=== PATIENT | female | born 1945 | race Caucasian/White ===

== ENCOUNTER 2018-06-11 10:41 | Inpatient (IN) | payer OTHER ==
[~2018-06-11] VITALS: Ht 170.2 cm; Wt 117.3 kg
[~2018-06-11 10:41] MED LIST: ACET325 PO; ALBIPROI INH; ALBU90OI6 INH; ASPI81CH PO; ASPI81EC PO; Albuterol2.5 MG/0.5 INH; Augmentin 875-1 EACH PO; BUDE6HFA INH; DOCU100 PO; GUAI600T33 PO; LEVO750 PO; LOSA25 PO; MONT10T PO; OXYACE5T PO; PRED10 PO; SPIR25 PO; TIOT18 INH; TORSE20 PO; VERA240ER PO; VERA240ERA PO; VERA80 PO; WARF4 PO
[2018-06-11 11:27] LABS: BASOPHILS ABSOLUTE AUTO 0.02 K/mm3 (0.00-0.23); BASOPHILS PERCENT AUTO 0 % (0-2); EOSINOPHILS ABSOLUTE AUTO 0.09 K/mm3 (0.00-0.68); EOSINOPHILS PERCENT AUTO 1 % (0-6); Hematocrit 40.2 % (33.0-51.0); IMMATURE GRAN ABSOLUTE AUTO 0.06 K/mm3 (0.00-0.10); IMMATURE GRAN PERCENT AUTO 1 % (0-1); LYMPHOCYTES ABSOLUTE AUTO 0.53 K/mm3 (0.84-5.20); LYMPHOCYTES PERCENT AUTO 4 % (21-46); MONOCYTES ABSOLUTE AUTO 0.69 K/mm3 (0.16-1.47); MONOCYTES PERCENT AUTO 5 % (4-13); Mean Corpuscular HGB 27.3 pg (26.0-34.0); Mean Corpuscular HGB Conc 32.3 g/dL (31.5-36.5); Mean Corpuscular Volume 84 fL (80-100); Mean Platelet Volume 8.9 fL (9.1-12.4); NEUTROPHILS ABSOLUTE AUTO 11.83 K/mm3 (1.96-9.15); NEUTROPHILS PERCENT AUTO 89 % (41-73); Platelet Count 432 K/mm3 (150-400); RDW Coefficient Variation 14.6 % (11.7-14.2); RDW Standard Deviation 45.2 fL (35.1-46.3); Red Blood Cell Count 4.77 M/mm3 (3.80-5.20); White Blood Cell Count 13.22 K/mm3 (4.00-11.30)
[2018-06-11 11:58] LABS: Alanine Aminotransfer (ALT/SGP 31 U/L (12-78); Albumin, Blood 2.6 g/dL (3.4-5.0); Albumin/Globulin Ratio 0.6 (0.8-1.8); Alk Phos 115 U/L (50-136); Anion Gap 9 mmol/L (6-16); Aspartate Aminotrans (AST/SGOT 17 U/L (12-37); Bilirubin, Total 0.6 mg/dL (0.1-1.0); Blood Urea Nitrogen 7 mg/dL (8-24); Bun/Creatinine Ratio 13.6 (12.0-20.0); CO2, Blood 26 mmol/L (21-32); Chloride, Blood 90 mmol/L (98-108); Creatinine, Blood 0.52 mg/dL (0.40-1.00); Globulin, Blood 4.6 g/dL (2.2-4.0); Glomerular Filtration Rate >60 (60-); Glucose, Blood 121 mg/dL (70-99); Potassium, Blood 4.3 mmol/L (3.5-5.5); Sodium, Blood 125 mmol/L (136-145); Total Protein, Blood 7.2 g/dL (6.4-8.2); Troponin I <0.015 ng/mL (0.000-0.040)
[2018-06-11] MEDS ORDERED: BRIMONIDINE TART5 M1 (12:03)
[2018-06-11] MEDS ORDERED: LATANOPROST2.5 ML OP (12:04)
[2018-06-11] MEDS ORDERED: DORZOPSO (12:05)
[2018-06-11] MEDS ORDERED: PRESERVISION A1 EACH PO (12:05)
[2018-06-11 12:49] LABS: Influenza A Negative (NEGATIVE); Influenza B Negative (NEGATIVE)
--- NOTE | 2018-06-11 18:46 | NUR ---
SHIFT SUMMARY ADMIT DONE. NO ACUTE CONCERNS AT THIS TIME. SHE HAS DIM LUNG SOUNDS IN THE LOWER LOBES. PATIENT ON 2L O2 VIA NC. PATIENT ALERT AND ORIENTED INDEPENDENT.
[2018-06-12 04:51] LABS: BASOPHILS ABSOLUTE AUTO 0.01 K/mm3 (0.00-0.23); BASOPHILS PERCENT AUTO 0 % (0-2); EOSINOPHILS PERCENT AUTO 0 % (0-6); Hematocrit 40.3 % (33.0-51.0); Hemoglobin 12.7 g/dL (11.5-16.0); IMMATURE GRAN ABSOLUTE AUTO 0.08 K/mm3 (0.00-0.10); IMMATURE GRAN PERCENT AUTO 1 % (0-1); LYMPHOCYTES ABSOLUTE AUTO 0.38 K/mm3 (0.84-5.20); LYMPHOCYTES PERCENT AUTO 3 % (21-46); MONOCYTES ABSOLUTE AUTO 0.12 K/mm3 (0.16-1.47); MONOCYTES PERCENT AUTO 1 % (4-13); Mean Corpuscular HGB 27.1 pg (26.0-34.0); Mean Corpuscular HGB Conc 31.5 g/dL (31.5-36.5); Mean Corpuscular Volume 86 fL (80-100); Mean Platelet Volume 8.8 fL (9.1-12.4); NEUTROPHILS ABSOLUTE AUTO 11.21 K/mm3 (1.96-9.15); NEUTROPHILS PERCENT AUTO 95 % (41-73); Platelet Count 439 K/mm3 (150-400); RDW Coefficient Variation 14.6 % (11.7-14.2); RDW Standard Deviation 46.9 fL (35.1-46.3); Red Blood Cell Count 4.68 M/mm3 (3.80-5.20)
[2018-06-12 05:15] LABS: Anion Gap 8 mmol/L (6-16); Blood Urea Nitrogen 7 mg/dL (8-24); Bun/Creatinine Ratio 13.1 (12.0-20.0); CO2, Blood 26 mmol/L (21-32); Calcium, Blood 8.9 mg/dL (8.5-10.1); Chloride, Blood 93 mmol/L (98-108); Creatinine, Blood 0.53 mg/dL (0.40-1.00); Glomerular Filtration Rate >60 (60-); Glucose, Blood 175 mg/dL (70-99); Potassium, Blood 4.4 mmol/L (3.5-5.5); Sodium, Blood 127 mmol/L (136-145)
--- NOTE | 2018-06-12 18:38 | NUR ---
SHIFT SUMMARY PATIENT ALERT AND ORIENTED. VERY PLEASANT. INDEPENDENT IN THE ROOM. RUNNING ANOTHER BAG OF NORMAL SALINE TO GET THE PATIENT'S SODIUM LEVEL BACK INTO THE SAFE RANGE.
--- NOTE | 2018-06-13 03:25 | NUR ---
SHIFT SUMMARY PATIENT HAD NO ACUTE CHANGES OBSERVED THIS SHIFT. AXO X3 AND INDEPENDENT IN THE ROOM. PATIENT STAYING IN CHAIR WITH CPAP AND 3L O2. PIV REMAINS INTACT. NS FINISHED INFUSING BAG 2/2. VSS/AFEBRILE. DENIES PAIN AND N/V. SOLU MEDROL GIVEN PER EMAR. RT IN FOR BREATHING TX. COOPERATIVE WITH CARE. CALL LIGHT IN REACH. BED IN LOWEST POSITION. WILL CONTINUE TO MONITOR UNTIL DAY SHIFT NURSE ASSUMES CARE.
[2018-06-13 07:45] LABS: Anion Gap 6 mmol/L (6-16); Blood Urea Nitrogen 16 mg/dL (8-24); Bun/Creatinine Ratio 29.5 (12.0-20.0); CO2, Blood 28 mmol/L (21-32); Calcium, Blood 8.4 mg/dL (8.5-10.1); Chloride, Blood 96 mmol/L (98-108); Creatinine, Blood 0.54 mg/dL (0.40-1.00); Glomerular Filtration Rate >60 (60-); Glucose, Blood 171 mg/dL (70-99); Potassium, Blood 4.4 mmol/L (3.5-5.5); Sodium, Blood 130 mmol/L (136-145)
--- NOTE | 2018-06-13 18:10 | NUR ---
PATIENT IS A/OX4 AND UP INDEPENDENTLY IN ROOM. VSS THIS SHIFT. TOLERATING REGULAR DIET. PATIENT REPORTS SHE IS FEELING MUCH BETTER THIS AFTERNOON. 3LO2 TO MAINTAIN SATS, LUNGS COARSE IN BASES. ROBITUSSIN SCHEDULED FOR COUGH. SKIN INTACT. NO ACUTE CHANGES THIS SHIFT.
--- NOTE | 2018-06-14 05:16 | NUR ---
SHIFT SUMMARY: NO ACUTE CHANGES TONIGHT. PT IS A&O, INDEPENDENT IN RM. LS COARSE WHEEZE T/O. ON 3L VIA NC, BASELINE RA. CPAP @ NIGHT. SCHEDULED SOLU MEDROL AND ROBITUSSIN ADMINISTERED T/O PER ORDERS. PT REPORTS SHE MAY BE GOING HOME TOMORROW. HOWEVER, PT IS STILL DEPENDENT ON O2. WILL CONT TO MONITOR AND PROVIDE CARE UNTIL PRESUMED BY ONGOING RN.
[2018-06-14] MEDS ORDERED: Augmentin 875-1 EACH PO (12:17)
[2018-06-14] MEDS ORDERED: PRED20 (12:19)
[2018-06-14] MEDS ORDERED: ROBITUSSIN COU237 ML PO (12:21)
--- NOTE | 2018-06-14 13:05 | NUR ---
DISCHARGE PT UP IN CHAIR FOR BF, STATE CONTINUING SHORTNESS OF BREATH HOWEVER FEELING IMPROVED, HOPEFUL TO GO HOME. DR COCHRAN IN TO ASSESS HER, STATE OK FOR D/C HOME AFTER HOME O2 EVAL. RT IN AFTER LUNCH FOR EVAL, PT WILL REQUIRE INCREASE IN HOME O2 ORDERS, CARE MANAGEMENT NOTIFIED. IV D/C INTACT. D/C INSTRUCT REVIEWED W PT/. SCRIPTS FAXED TO [facility]/REQUEST. W/C ESCORT FROM HOSP PROVIDED, THEY HAVE PORTABLE O2 FROM HOME FOR RIDE HOME. PLEASANT & APPRECIATIVE.
== END 2018-06-14 13:05 | disposition home or self-care (01) | DRG 871 ==
LOC: ER 10:41 → MEDS 13:39 → ENPENDDIS 06-14 11:25 → MEDS 06-14 13:05
PROVIDERS: Emergency Medicine; Internal Medicine; ADMIT Hospitalist
DX: A41.9 Sepsis, unspecified organism (principal); J96.01 Acute respiratory failure with hypoxia; J18.9 Pneumonia, unspecified organism; E87.1 Hypo-osmolality and hyponatremia; E66.2 Morbid (severe) obesity with alveolar hypoventilation; J44.1 Chronic obstructive pulmonary disease with (acute) exacerbation; J44.0 Chronic obstructive pulmonary disease with (acute) lower respiratory infection; C83.30 Diffuse large B-cell lymphoma, unspecified site; G47.33 Obstructive sleep apnea (adult) (pediatric); I35.0 Nonrheumatic aortic (valve) stenosis; Z99.81 Dependence on supplemental oxygen; I10 Essential (primary) hypertension; Z87.891 Personal history of nicotine dependence; Z68.39 Body mass index [BMI] 39.0-39.9, adult
CPT/HCPCS: 36415; 71046; 80048; 80053; 83605; 83880; 84484; 85025; 87070; 87077; 87185; 87205; 87804; 93005; 93010; 94640; 94760; 94761; 94762; 96374; 96375; 97161; 99285-25; J0456; J0696; J1650; J2543; J2930; J7030; J7050

== ENCOUNTER → 2021-01-22 | Outpatient (CLI) | payer OTHER ==
[~2021-01-22] MED LIST changes: +BRIMONIDINE TART5 M1; +DORZOPSO; +LATANOPROST2.5 ML OP; +PRED20; +PRESERVISION A1 EACH PO; +ROBITUSSIN COU237 ML PO
== END | disposition home or self-care (01) ==
LOC: LAB SHORT 15:09
DX: L72.11 Pilar cyst (principal)
CPT/HCPCS: 88304

== ENCOUNTER 2021-05-02 10:11 | Inpatient (IN) | payer OTHER, MEDICARE ==
[~2021-05-02] VITALS: Ht 167.6 cm; Wt 111.1 kg
[~2021-05-02 10:11] MED LIST changes: -DORZOPSO; +DORZOPSO BOTHEYES; +PRESERVISION A1 EAC1 PO; -PRESERVISION A1 EACH PO; +SYMBICORT 160-4.6 GM INH
[2021-05-02 10:55] LABS: BASOPHILS ABSOLUTE AUTO 0.03 K/mm3 (0.00-0.23); BASOPHILS PERCENT AUTO 0 % (0-2); EOSINOPHILS ABSOLUTE AUTO 0.07 K/mm3 (0.00-0.68); EOSINOPHILS PERCENT AUTO 0 % (0-6); Hematocrit 41.5 % (33.0-51.0); Hemoglobin 13.4 g/dL (11.5-16.0); IMMATURE GRAN PERCENT AUTO 1 % (0-1); LYMPHOCYTES ABSOLUTE AUTO 0.54 K/mm3 (0.84-5.20); LYMPHOCYTES PERCENT AUTO 3 % (21-46); MONOCYTES ABSOLUTE AUTO 0.96 K/mm3 (0.16-1.47); MONOCYTES PERCENT AUTO 6 % (4-13); Mean Corpuscular HGB 27.2 pg (26.0-34.0); Mean Corpuscular HGB Conc 32.3 g/dL (31.5-36.5); Mean Corpuscular Volume 84 fL (80-100); NEUTROPHILS ABSOLUTE AUTO 14.41 K/mm3 (1.96-9.15); NEUTROPHILS PERCENT AUTO 89 % (41-73); Platelet Count 521 K/mm3 (150-400); RDW Coefficient Variation 14.4 % (11.7-14.2); RDW Standard Deviation 44.9 fL (35.1-46.3); Red Blood Cell Count 4.92 M/mm3 (3.80-5.20); White Blood Cell Count 16.11 K/mm3 (4.00-11.30)
[2021-05-02 11:10] LABS: Alanine Aminotransfer (ALT/SGP 51 U/L (12-78); Albumin, Blood 2.7 g/dL (3.4-5.0); Albumin/Globulin Ratio 0.6 (0.8-1.8); Alk Phos 173 U/L (50-136); Anion Gap 6 mmol/L (6-16); Aspartate Aminotrans (AST/SGOT 28 U/L (12-37); Bilirubin, Total 0.8 mg/dL (0.1-1.0); Blood Urea Nitrogen 26 mg/dL (8-24); Bun/Creatinine Ratio 29.2 (12.0-20.0); CO2, Blood 31 mmol/L (21-32); Calcium, Blood 8.9 mg/dL (8.5-10.1); Chloride, Blood 82 mmol/L (98-108); Creatinine, Blood 0.89 mg/dL (0.40-1.00); Globulin, Blood 4.7 g/dL (2.2-4.0); Glomerular Filtration Rate >60 (60-); Glucose, Blood 139 mg/dL (70-99); Potassium, Blood 4.8 mmol/L (3.5-5.5); Sodium, Blood 119 mmol/L (136-145); Total Protein, Blood 7.4 g/dL (6.4-8.2)
--- NOTE | 2021-05-02 17:45 | NUR ---
TRANSFER UPDATE REPORT FROM ED NURSE AT 1524. PT ARRIVED TO PCU AT 1550 VIA GURNEY AND ON 6L NC UPON ARRIVAL. PT TRANSFERED SELF FROM [facility] TO [facility], REPORTED SOB WITH EXERTION, SATS REMAINED IN 90'S. VSS WITH O2 SATS >96% ON 6L NC, TITRATED TO 4L. SATS REMAINED >96%, O2 TIRATED TO 2L NC. NO REPORT OF CHEST PAIN/PRESSURE SINCE ARRIVAL TO UNIT. NS RUNNING PER EMAR. PT A/OX4 AND COOPERATIVE OF CARE.
--- NOTE | 2021-05-02 19:43 | NUR ---
ASSUMED CARE OF PATIENT AT APPROX 1900. PT UP IN CHAIR. ALERT, ORIENTED x4; CALM AND COOPERATIVE WITH CARE. PT REPORTS BEING LEGALLY BLIND, PUPILS ARE UNEQUAL, THE RIGHT DOES NOT REACT TO LIGHT AND LEFT IS SLUGGISH. PT REPORTS SOB WHILE SITTING IN CHAIR, SPO2 >90% ON 2L O2 VIA NC; BREATHING IS EVEN AND UNLABORED. PT MEJIA PAIN, CHEST PAIN/PRESSURE, NAUSEA, DIZZINESS AND NUMB/TINGLING. NS INFUSING PER ORDERS. VSS. NO OTHER ACUTE CHANGES. WILL CONTINUE TO MONITOR UNITL REPORT GIVEN TO ONCOMING RN.
--- NOTE | 2021-05-02 22:25 | NUR ---
pt requesting to sleep up in chair, cpap in place. will continue to monitor
[2021-05-03 04:09] LABS: BASOPHILS ABSOLUTE AUTO 0.01 K/mm3 (0.00-0.23); BASOPHILS PERCENT AUTO 0 % (0-2); EOSINOPHILS ABSOLUTE AUTO 0.07 K/mm3 (0.00-0.68); EOSINOPHILS PERCENT AUTO 1 % (0-6); Hematocrit 39.7 % (33.0-51.0); Hemoglobin 12.7 g/dL (11.5-16.0); IMMATURE GRAN ABSOLUTE AUTO 0.06 K/mm3 (0.00-0.10); IMMATURE GRAN PERCENT AUTO 0 % (0-1); LYMPHOCYTES ABSOLUTE AUTO 0.49 K/mm3 (0.84-5.20); LYMPHOCYTES PERCENT AUTO 4 % (21-46); MONOCYTES ABSOLUTE AUTO 1.01 K/mm3 (0.16-1.47); MONOCYTES PERCENT AUTO 8 % (4-13); Mean Corpuscular Volume 85 fL (80-100); Mean Platelet Volume 8.5 fL (9.1-12.4); NEUTROPHILS ABSOLUTE AUTO 11.73 K/mm3 (1.96-9.15); NEUTROPHILS PERCENT AUTO 88 % (41-73); Platelet Count 423 K/mm3 (150-400); RDW Coefficient Variation 14.4 % (11.7-14.2); RDW Standard Deviation 44.2 fL (35.1-46.3); White Blood Cell Count 13.37 K/mm3 (4.00-11.30)
[2021-05-03 04:33] LABS: Anion Gap 10 mmol/L (6-16); Blood Urea Nitrogen 27 mg/dL (8-24); Bun/Creatinine Ratio 32.4 (12.0-20.0); CO2, Blood 29 mmol/L (21-32); Calcium, Blood 8.6 mg/dL (8.5-10.1); Chloride, Blood 82 mmol/L (98-108); Creatinine, Blood 0.83 mg/dL (0.40-1.00); Glomerular Filtration Rate >60 (60-); Glucose, Blood 105 mg/dL (70-99); Magnesium, Blood 1.8 mg/dL (1.6-2.4); Potassium, Blood 4.5 mmol/L (3.5-5.5); Sodium, Blood 121 mmol/L (136-145)
--- NOTE | 2021-05-03 06:02 | NUR ---
SHIFT SUMMARY PT APPEARS TO BE SLEEPING INTERMITTENTLY T/O SHIFT. PT STATES SHE DOES NOTE FEEL WELL, WHEN ASKED ABOUT RESPIRATORY, PT STATES ITS THIS SAME. SPO2 >90% WHILE PT AT REST ON 2L O2 VIA NC OR CPAP AT 5-6 WITH 2 L BLEED IN; PT DESATURATES WITH ACTIVITY; SOB AT REST. PT DENIES PAIN, CHEST PAIN, NAUSEA, DIZZINESS AND NUMB/TINGLING. OTHER VSS. NO S/SX OF DISTRESS NOTED. NO OTHER ACUTE CHANGES NOTED DURING SHIFT. WILL CONTINUE TO MONITOR UNTIL REPORT GIVEN TO ONCOMING RN.
[2021-05-03] MEDS ORDERED: Bisoprolol Fumar5 MG PO (06:19)
[2021-05-03 11:04] LABS: International Normalized Ratio 1.15
[2021-05-03 16:36] LABS: Lactate Dehydrogenase, Body Fl 186 U/L
[2021-05-03 16:46] LABS: Albumin, Body Fluid 2.2 g/dL; Glucose, Body Fluid 106 mg/dL; Protein, Body Fluid 4.1 g/dL
--- NOTE | 2021-05-03 16:54 | NUR ---
SHIFT SUMMARY PT A/O X4 AND COOPERATIVE OF CARE. VSS THROUGHOUT SHIFT WITH O2 SATS >95% ON 2L NC. PT UP TO COMMODE MULTIPLE TIMES DURING SHIFT, SMALL AMOUNTS OF OUTPUT EACH TIME, O2 SATS WOULD DROP TO 80'S QUICKLEY WHILE PT WAS TRANSFERING TO [facility]. THORACENTESIS DONE IN ROOM BY , 550ML DRAINED, PT REPORTS "FEELING MUCH BETTER ALREADY." OXYGEN TITRATED TO 1L NC, SATS >92%. ABOUT 1700, PT REPORTED A BRIEF FEELING OF LIGHTHEADEDNESS, HR IN THE 130'S. NOTIFIED.
[2021-05-03 16:59] LABS: Automated BF RBC Count 0.074 M/mm3 (0-0); Automated BF WBC Count 8.272 K/mm3 (0-999); Body Fluid WBC Count 8272 /mm3 (0-999); RBC Count, Body Fluid 74000 /mm3 (0-0)
[2021-05-03 17:18] LABS: Appearance, Body Fluid Bloody (Clear); Color, Body Fluid Red (None-Yellow); Total Cell Count, Body Fluid 100
[2021-05-03 18:22] LABS: BASOPHILS ABSOLUTE AUTO 0.02 K/mm3 (0.00-0.23); BASOPHILS PERCENT AUTO 0 % (0-2); EOSINOPHILS ABSOLUTE AUTO 0.15 K/mm3 (0.00-0.68); EOSINOPHILS PERCENT AUTO 1 % (0-6); Hematocrit 40.3 % (33.0-51.0); Hemoglobin 13.2 g/dL (11.5-16.0); IMMATURE GRAN ABSOLUTE AUTO 0.08 K/mm3 (0.00-0.10); IMMATURE GRAN PERCENT AUTO 1 % (0-1); LYMPHOCYTES ABSOLUTE AUTO 0.68 K/mm3 (0.84-5.20); LYMPHOCYTES PERCENT AUTO 5 % (21-46); MONOCYTES ABSOLUTE AUTO 0.98 K/mm3 (0.16-1.47); MONOCYTES PERCENT AUTO 7 % (4-13); Mean Corpuscular HGB 27.4 pg (26.0-34.0); Mean Corpuscular HGB Conc 32.8 g/dL (31.5-36.5); Mean Corpuscular Volume 84 fL (80-100); Mean Platelet Volume 8.9 fL (9.1-12.4); NEUTROPHILS ABSOLUTE AUTO 12.12 K/mm3 (1.96-9.15); NEUTROPHILS PERCENT AUTO 86 % (41-73); Platelet Count 535 K/mm3 (150-400); RDW Coefficient Variation 14.4 % (11.7-14.2); RDW Standard Deviation 43.8 fL (35.1-46.3); Red Blood Cell Count 4.82 M/mm3 (3.80-5.20); White Blood Cell Count 14.03 K/mm3 (4.00-11.30)
--- NOTE | 2021-05-03 20:59 | NUR ---
UPDATE PHYSICIAN NOTIFIED PHARMACY IS OUT OF IV METOPROLOL AND INFORMED PHYSICIAN OF PT'S BP AND THAT SYSTOLIC BP UNDER 100. INSTRUCTED TO HOLD METOPROLOL AT THIS TIME. HOSPITALIST CALLED AND INFORMED THAT PT'S BP LOW AND PT BECOMING SYMPTOMATIC AND DIAPHORETIC. ORDERS FOR 250 ML BOLUS ONE TIME. WILL CONT TO MONITOR.
--- NOTE | 2021-05-03 21:38 | NUR ---
UPDATE PHYSICIAN NOTIFIED OF PT'S LOW BP. ORDERS FOR ANOTHER 250 ML BOLUS. PHYSICIAN NOTIFIED OF DAY SHIFT HOSPITALISTS PLAN TO DO CHEST X RAY AND CBC IF PT BECOMES HEMODYNAMICALLY UNSTABLE. ORDERS PUT IN, SEE EHR.
[2021-05-03 22:13] LABS: BASOPHILS ABSOLUTE AUTO 0.03 K/mm3 (0.00-0.23); BASOPHILS PERCENT AUTO 0 % (0-2); EOSINOPHILS PERCENT AUTO 1 % (0-6); Hematocrit 39.8 % (33.0-51.0); Hemoglobin 13.1 g/dL (11.5-16.0); IMMATURE GRAN ABSOLUTE AUTO 0.05 K/mm3 (0.00-0.10); IMMATURE GRAN PERCENT AUTO 0 % (0-1); LYMPHOCYTES ABSOLUTE AUTO 0.64 K/mm3 (0.84-5.20); LYMPHOCYTES PERCENT AUTO 4 % (21-46); MONOCYTES ABSOLUTE AUTO 0.97 K/mm3 (0.16-1.47); MONOCYTES PERCENT AUTO 6 % (4-13); Mean Corpuscular HGB 27.6 pg (26.0-34.0); Mean Corpuscular HGB Conc 32.9 g/dL (31.5-36.5); Mean Corpuscular Volume 84 fL (80-100); Mean Platelet Volume 9.1 fL (9.1-12.4); NEUTROPHILS ABSOLUTE AUTO 13.61 K/mm3 (1.96-9.15); NEUTROPHILS PERCENT AUTO 88 % (41-73); Platelet Count 524 K/mm3 (150-400); RDW Coefficient Variation 14.3 % (11.7-14.2); RDW Standard Deviation 44.1 fL (35.1-46.3); Red Blood Cell Count 4.74 M/mm3 (3.80-5.20)
--- NOTE | 2021-05-03 22:28 | NUR ---
UPDATE PHYSICIAN NOTIFIED OF CHEST X RAY. PHYSICIAN AT BEDSIDE WITH PT. ORDERS FOR MIDODRINE 10 MG AND COVID SWAB. PLAN FOR LASIX IF MIDODRINE INCREASES BP.
--- NOTE | 2021-05-03 22:43 | NUR ---
UPDATE/FLUIDS STOPPED FLUIDS STOPPED PER PHYSICIAN ORDER AT THIS TIME. COVID SWAB DC'D D/T DUPLICATE ORDER. COVID SWAB DONE IN ED, NEGATIVE.
--- NOTE | 2021-05-03 23:57 | NUR ---
UPDATE PHYSICIAN UPDATED ON PT'S STATUS. PT ASYMPTOMATIC WITH LOW BP. MAP ABOVE 65. IF PT BEGINS TO HAVE RESPIRATORY DISTRESS INSTRUCTED TO INFORM PHYSICIAN.
--- NOTE | 2021-05-04 05:52 | NUR ---
SHIFT SUMMARY PT ALERT AND ORIENTED X 4. SEE NOTES REGARDING PT'S BP AND HR. PT'S HR CURRENTLY WNL SINUS RHYTHM. BP WNL, MAP ABOVE 65. PT NO LONGER DIAPHORETIC. AND REPORTS TO "FEEL MUCH BETTER." NS FLUIDS STOPPED PER HOSPITALIST ORDER D/T FLUID OVERLOAD SEEN IN CHEST X RAY. PT ABLE TO TURN SELF IN BED NEEDED. SITE FROM [facility]. NO HEMATOMA FORMATION. BANDAID IN PLACE. PT SLEEPING T/O SHIFT. SBA TO COMMODE NEEDED. OXYGEN SATURATION MAINTAINED ABOVE 92%. PT WORE HOME CPAP WITH BLEED IN RANGING FROM 3-6 L. PT SLEEPING WITH MOUTH OPEN CAUSING PT TO DESAT. PHYSICIAN AWARE. WILL CONT TO MONITOR UNTIL REPORT GIVEN TO DAYSHIFT RN.
[2021-05-04 07:05] LABS: Anion Gap 6 mmol/L (6-16); Blood Urea Nitrogen 24 mg/dL (8-24); Bun/Creatinine Ratio 36.9 (12.0-20.0); CO2, Blood 31 mmol/L (21-32); Calcium, Blood 8.5 mg/dL (8.5-10.1); Chloride, Blood 87 mmol/L (98-108); Creatinine, Blood 0.65 mg/dL (0.40-1.00); Glomerular Filtration Rate >60 (60-); Glucose, Blood 108 mg/dL (70-99); Potassium, Blood 3.9 mmol/L (3.5-5.5); Sodium, Blood 124 mmol/L (136-145)
--- NOTE | 2021-05-04 10:57 | NUR ---
thorocentesis ordered today, but due to receiving lovenox this AM the radiologist would like to hold off on thorocentesis today and do it tomorrow. Please hold lovenox until after thoro, will contact pharmacy and pass along in report.
--- NOTE | 2021-05-04 18:46 | NUR ---
Shift note: Pt is A&O, pleasant with cares. Pt did get some sleep today, stated she hadn't slept in days. VSS on 3-5L CPAP and then 4L nasal canula when she is eating. BP have been on the soft side (SBP 90-110s), but I was able to give both doses of lasix as well as the metoprolol. Pt was sinus tach in AM, but remained 70-80s after metoprolol. Pt has Left BBB. Thoracentesis was ordered today, but pt had lovenox injection this AM, radiology will do in AM and hold dose of lovenox tomorrow until after thoracentesis. fluids d/c today. Heart failure education packed was given to pt and for to read to pt. Basic information was also discussed with pt and .
--- NOTE | 2021-05-05 05:43 | NUR ---
SHIFT SUMMARY PT ALERT AND ORIENTED X 4. HR STABLE. BP STABLE. MAP ABOVE 65. PT ABLE TO TURN SELF IN BED NEEDED. PT SBA TO COMMODE. NO CP OR PRESSURE REPORTED. OXYGEN SATURATION MAINTAINED ABOVE 92% ON CPAP. SEE EHR FOR SETTINGS. PT SLEPT T/O SHIFT. WILL CONT TO MONITOR UNTIL REPORT GIVEN TO DAYSHIFT RN.
[2021-05-05 05:49] LABS: Thyroid Stimulating Hormone 0.473 uIU/mL (0.360-4.800)
--- NOTE | 2021-05-05 09:34 | NUR ---
LVM for Dr. Jose to update her regarding pt. They did not do the thoracentesis due to risk vs. benifit after ultrasounding the pt. Pt would also like throat lozenges and BM meds.
--- NOTE | 2021-05-05 14:45 | NUR ---
Pt reported that she uses [facility] for oxygen needs at home. She currently does not use oxygen during the day and uses CPAP at night. Previously she has needed home oxygen and has been set up with [facility] for oxygen needs.
--- NOTE | 2021-05-05 14:51 | NUR ---
Per Career Development Coordinator Screening completed today by Evelyne Pineda, patient's PLOF is independent, lives with family. Her Spouse, Agapito Olivo [phone] is primary contact. DME that the patient already has in her home: FWW, bedside commode, shower bench, CPAP, O2 concentrator, patient is on 2 lpm at home. O2 services is through [facility] [place]. Patient has previously received HH services from [facility]. I called Summer with [facility] to relay the possible referral to her. Patient's Agapito will provide transportation upon discharge.
[2021-05-05 15:56] LABS: Anion Gap 10 mmol/L (6-16); Blood Urea Nitrogen 24 mg/dL (8-24); Bun/Creatinine Ratio 32.9 (12.0-20.0); CO2, Blood 30 mmol/L (21-32); Calcium, Blood 8.4 mg/dL (8.5-10.1); Chloride, Blood 87 mmol/L (98-108); Creatinine, Blood 0.73 mg/dL (0.40-1.00); Glomerular Filtration Rate >60 (60-); Glucose, Blood 112 mg/dL (70-99); Potassium, Blood 3.7 mmol/L (3.5-5.5); Sodium, Blood 127 mmol/L (136-145)
--- NOTE | 2021-05-05 16:20 | NUR ---
Shift note: Pt is A&O, pleasant with cares. VSS on 1-2L nasal canula and CPAP w/2L prn. IV lasix given per orders. Pt complained of cough and sore throat, brought in lozenges since our pharmacy was out of them and cough medication given per orders. No BM since admission, prn meds given. Pt has been passing gas, still waiting on BM. Pt did not have thoracentesis today. She went down to imaging and after the ultrasound the radiologist said the risk outweighed the benifit of procedure. Cardiology consulted today. Dr. Kenney suggested to keep outpt heart cath appointment for 05/12 with her field care advocate. Not an urgent need for heart cath at this time.
[2021-05-06 04:16] LABS: BASOPHILS ABSOLUTE AUTO 0.03 K/mm3 (0.00-0.23); BASOPHILS PERCENT AUTO 0 % (0-2); EOSINOPHILS ABSOLUTE AUTO 0.16 K/mm3 (0.00-0.68); EOSINOPHILS PERCENT AUTO 2 % (0-6); Hematocrit 39.9 % (33.0-51.0); Hemoglobin 12.7 g/dL (11.5-16.0); IMMATURE GRAN ABSOLUTE AUTO 0.04 K/mm3 (0.00-0.10); IMMATURE GRAN PERCENT AUTO 0 % (0-1); LYMPHOCYTES ABSOLUTE AUTO 0.88 K/mm3 (0.84-5.20); LYMPHOCYTES PERCENT AUTO 9 % (21-46); MONOCYTES ABSOLUTE AUTO 0.79 K/mm3 (0.16-1.47); MONOCYTES PERCENT AUTO 8 % (4-13); Mean Corpuscular HGB Conc 31.8 g/dL (31.5-36.5); Mean Corpuscular Volume 85 fL (80-100); Mean Platelet Volume 8.8 fL (9.1-12.4); NEUTROPHILS ABSOLUTE AUTO 7.72 K/mm3 (1.96-9.15); NEUTROPHILS PERCENT AUTO 80 % (41-73); Platelet Count 502 K/mm3 (150-400); RDW Coefficient Variation 14.3 % (11.7-14.2); Red Blood Cell Count 4.71 M/mm3 (3.80-5.20); White Blood Cell Count 9.62 K/mm3 (4.00-11.30)
[2021-05-06 04:36] LABS: Anion Gap 8 mmol/L (6-16); Blood Urea Nitrogen 18 mg/dL (8-24); Bun/Creatinine Ratio 30.6 (12.0-20.0); CO2, Blood 34 mmol/L (21-32); Calcium, Blood 8.6 mg/dL (8.5-10.1); Chloride, Blood 85 mmol/L (98-108); Creatinine, Blood 0.59 mg/dL (0.40-1.00); Glomerular Filtration Rate >60 (60-); Glucose, Blood 123 mg/dL (70-99); Potassium, Blood 3.8 mmol/L (3.5-5.5); Sodium, Blood 127 mmol/L (136-145)
--- NOTE | 2021-05-06 05:45 | NUR ---
SHIFT SUMMARY PT ALERT AND ORIENTED X 4. HR STABLE. BP STABLE. NO CP OR PRESSURE. PT WORE HOME CPAP WITH 2.5 L BLEED IN DURING SHIFT. PT REQUESTED MELATONIN FOR SLEEP. PHYSICIAN NOTIFIED AND ORDERS PROVIDED. SEE EHR. OXYGEN SATURATION MAINTAINED ABOVE 92%. PT ABLE TO TURN SELF IN BED. SBA TO COMMODE NEEDED. PT SLEPT T/O SHIFT. WILL CONT TO MONITOR UNTIL REPORT GIVEN TO DAYSHIFT RN.
--- NOTE | 2021-05-06 16:53 | NUR ---
Shift note: Pt is A&O, pleasant with cares. VSS on 1L nasal canula and then 2L w/ CPAP. Lasix IV 40mg increased to TID. BPs soft, but map >65. Pt up SBA. Na 127 this AM. K replacement given with 1300 lasix dose. Good appetite. No BM since admission, miralax given.
--- NOTE | 2021-05-06 21:21 | NUR ---
PT IS A&OX3, SITTING UP IN CHAIR ON ENTERING ROOM. PT RETURNED TO BE WITH SBA, GAIT STEADY. PT ON CPAP WITH 2 LPM, O2 SATS IN 90'S. BP STABLE. HR SINUS RHYTHM WITH LEFT BUNDLE BRANCH BLOCK IN 70'S. ASSISTED TO POSITION SELF IN BED FOR COMFORT. CALL LIGHT IN REACH.
[2021-05-07 04:44] LABS: BASOPHILS ABSOLUTE AUTO 0.04 K/mm3 (0.00-0.23); BASOPHILS PERCENT AUTO 0 % (0-2); EOSINOPHILS PERCENT AUTO 2 % (0-6); Hematocrit 41.7 % (33.0-51.0); Hemoglobin 13.4 g/dL (11.5-16.0); IMMATURE GRAN ABSOLUTE AUTO 0.06 K/mm3 (0.00-0.10); IMMATURE GRAN PERCENT AUTO 1 % (0-1); LYMPHOCYTES ABSOLUTE AUTO 1.44 K/mm3 (0.84-5.20); LYMPHOCYTES PERCENT AUTO 12 % (21-46); MONOCYTES ABSOLUTE AUTO 0.84 K/mm3 (0.16-1.47); MONOCYTES PERCENT AUTO 7 % (4-13); Mean Corpuscular HGB Conc 32.1 g/dL (31.5-36.5); Mean Corpuscular Volume 84 fL (80-100); Mean Platelet Volume 8.8 fL (9.1-12.4); NEUTROPHILS ABSOLUTE AUTO 9.24 K/mm3 (1.96-9.15); NEUTROPHILS PERCENT AUTO 78 % (41-73); Platelet Count 599 K/mm3 (150-400); RDW Coefficient Variation 14.5 % (11.7-14.2); RDW Standard Deviation 44.4 fL (35.1-46.3); Red Blood Cell Count 4.97 M/mm3 (3.80-5.20); White Blood Cell Count 11.82 K/mm3 (4.00-11.30)
--- NOTE | 2021-05-07 05:04 | NUR ---
PT HR IN 130'S, STATES "I DON'T FEEL WELL" COMPLAINS OF SOB, NO CHEST PAIN. DR. CABRERA INFORMED, ORDER FOR 5MGIV LOPRESSOR RECEIVED, INSTRUCTED ORDER CAN BE REPEATED IN 30 MINUTES.
[2021-05-07 05:14] LABS: Anion Gap 7 mmol/L (6-16); Blood Urea Nitrogen 17 mg/dL (8-24); Bun/Creatinine Ratio 26.6 (12.0-20.0); CO2, Blood 37 mmol/L (21-32); Calcium, Blood 8.7 mg/dL (8.5-10.1); Chloride, Blood 81 mmol/L (98-108); Creatinine, Blood 0.64 mg/dL (0.40-1.00); Glomerular Filtration Rate >60 (60-); Glucose, Blood 149 mg/dL (70-99); Potassium, Blood 3.9 mmol/L (3.5-5.5); Sodium, Blood 125 mmol/L (136-145)
[2021-05-07 09:18] LABS: Thyroid Stimulating Hormone 0.667 uIU/mL (0.360-4.800); Uric Acid, Blood 7.1 mg/dL (2.6-6.0)
--- NOTE | 2021-05-07 16:03 | NUR ---
PT IS A/OX4, PLEASANT AND COOPERATIVE. THE PT IS UP WITH MINIMAL ASSIST TO THE BSC AND CHAIR. THE PT IS SOB WITH ACTIVITY. THE PT BECAME SOB AT REST THIS AM ON NC. PTS CPAP WAS APPLIED AND THE PT STATED THAT SHE FELT THAT SHE WAS BREATHING EASIER. THE PT DENIED ANY CHEST PAIN OR ANY OTHER PAIN SO FAR THIS SHIFT. PT IS ON A 1000 ML/DAY AND HAS BEEN COMPLIANT WITH THAT. PT HAS HAD LITTLE OUT PUT EVEN AFTER DIURESIS, BLADDER SCAN SHOWED ONLY 57 ML POST VOID. [facility] WAS CONSULTED AND HAS SEEN THE PT. DR. NASCIMENTO [facility] WAS CONSULTED AND HAS SEEN THE PT. PLAN FOR ALBERTO AND CARDIOVERSION IN AM. THE PTS IS AT THE BEDSIDE. CALL LIGHT IN REACH. WILL CONTINUE TO MONITOR AND ASSESS FOR CHANGES
--- NOTE | 2021-05-07 21:43 | NUR ---
DR. APONTE CALLED TO CLARIFY IF PT SHOULD GET EVENING DOSE OF BUMEX WITH SBP OF 90. DR. APONTE STATES MEDICATION SHOULD BE GIVEN. NO PARAMETERS GIVEN FOR MEDICATION, INSTRUCTED TO CALL IF THERE ARE CONCERNS.
--- NOTE | 2021-05-07 22:13 | NUR ---
PT IS A&OX4. PT HOME CPAP IN PLACE. HR IN A-FLUTTER IN 70'S. PT COMPLAINING OF PAIN IN BACK, REPOSITIONED, PT REPORTS "THAT FEELS MUCH BETTER". BLE +3 PITTING EDEMA. MELATONIN PO GIVEN PER PT REQUEST TO ASSIST WITH INSOMNIA.
[2021-05-08 04:49] LABS: BASOPHILS ABSOLUTE AUTO 0.04 K/mm3 (0.00-0.23); BASOPHILS PERCENT AUTO 0 % (0-2); EOSINOPHILS ABSOLUTE AUTO 0.17 K/mm3 (0.00-0.68); EOSINOPHILS PERCENT AUTO 1 % (0-6); Hematocrit 41.3 % (33.0-51.0); Hemoglobin 13.4 g/dL (11.5-16.0); IMMATURE GRAN ABSOLUTE AUTO 0.07 K/mm3 (0.00-0.10); IMMATURE GRAN PERCENT AUTO 1 % (0-1); LYMPHOCYTES ABSOLUTE AUTO 1.14 K/mm3 (0.84-5.20); LYMPHOCYTES PERCENT AUTO 9 % (21-46); MONOCYTES ABSOLUTE AUTO 0.93 K/mm3 (0.16-1.47); MONOCYTES PERCENT AUTO 8 % (4-13); Mean Corpuscular HGB 27.4 pg (26.0-34.0); Mean Corpuscular HGB Conc 32.4 g/dL (31.5-36.5); Mean Corpuscular Volume 85 fL (80-100); Mean Platelet Volume 8.7 fL (9.1-12.4); NEUTROPHILS PERCENT AUTO 81 % (41-73); Platelet Count 515 K/mm3 (150-400); RDW Coefficient Variation 14.7 % (11.7-14.2); RDW Standard Deviation 44.8 fL (35.1-46.3); Red Blood Cell Count 4.89 M/mm3 (3.80-5.20); White Blood Cell Count 12.35 K/mm3 (4.00-11.30)
[2021-05-08 05:30] LABS: Bun/Creatinine Ratio 29.1 (12.0-20.0); Calcium, Blood 8.8 mg/dL (8.5-10.1); Creatinine, Blood 1.1 mg/dL (0.40-1.00); Potassium, Blood 4.5 mmol/L (3.5-5.5)
--- NOTE | 2021-05-08 06:14 | NUR ---
SPOKE WITH DR. APONTE ON PHONE. INFROMED PT HAD LESS THEN 100 ML URINE OUTPUT. REVIEWED PT'S AM MEDICATIONS WITH DR. APONTE.
--- NOTE | 2021-05-08 09:25 | NUR ---
Post cardioversion note: Pt prepped for ALBERTO/cardioversion. Code cart, medications, and suction set up. Consent signed and time out preformed. ALBERTO prob in at 0908, out at 0914. zoll set at 200J. Syncronized shock given at 0916. Pt converted from a-flutter, rate 130's to NSR with BBB, rate 85. Pt tolerated procedure well. Resting comfortabley, VSS. Will continue to monitor.
--- NOTE | 2021-05-08 10:27 | NUR ---
AM NOTE: PATIENT ALERT AND ORIENTED X4. NEURO WNL. HISTORY OF BLINDNESS, PUPILS UNEQUAL PATIENT BASELINE. DENIES NUMBNESS/TINGLING. ONE PERSON SBA. ON CPAP WITH 2L BLEED IN O2. WEARING RA - 2L NASAL CANNULA WHEN AWAKE. ALBERTO WITH CARDIOVERSION DONE THIS AM, SEE PREVIOUS NOTE. PATIENT REMAINS IN SR WITH BBB AND HR 70-80'S. BP SOFT. MAP ABOVE 65. PATIENT DENIES CHEST PAIN/PRESSURE/DIZZINESS. EDEMA IN BLE. LOW URINE OUTPUT AT THIS TIME. BLADDER SCAN NEEDED. MORNING MEDS HELD AT THIS TIME PATIENT IS DROWSY FROM PROCEDURE WILL GIVE WHEN PATIENT AWAKE AND ALERT. CALL LIGHT IN REACH. MONITORING BP CLOSELY.
--- NOTE | 2021-05-08 13:44 | NUR ---
UPDATE: SPOKE WITH DR. NASCIMENTO, UPDATED ON SOFT BP. ORDERS TO HOLD METOPROLOL FOR SBP UNDER 90. METOPROLOL TO START TOMORROW 0900. PATIENT NON SYMPTOMATIC WITH SOFT BP. SLEEPING AT THIS TIME WITH CPAP AND 2L 02. REMAINS IN SR WITH BBB AND HR 60-70'S. ABLE TO WAKE, EAT LUNCH, AND TAKE PO MEDS. UP TO BSC WITH 250 ML VOID. 24 HOUR URINE STARTED ON 05/08 AT 1300. CALL LIGHT IN REACH. IN THIS AM, UPDATED. WILL CONTINUE TO MONITOR.
--- NOTE | 2021-05-08 17:35 | NUR ---
SHIFT SUMMARY: NO ACUTE CHANGES. SEE PREVIOUS NOTES. PATIENT REMAINS ALERT AND ORIENTED X4. NO CHANGES IN NEURO. ON 2L NASAL CANNULA AT THIS TIME. SATING MID-HIGH 90'S. TELE REMAINS SINUS RHYTHM WITH HR 70'S. DENIES CHEST PAIN/PRESSURE. 24 HOUR URINE STARTED THIS SHIFT AT 1300. UP IN RECLINER AT THIS TIME EATING DINNER. BP REMAINS SOFT, MAP ABOVE 65. PROVIDERS AWARE. USING BSC WITH PERSON ASSIST. FLUID RESTRICTION MAINTAINED. CALL LIGHT IN REACH. WILL CONTINUE TO MONITOR AND REPORT OFF.
--- NOTE | 2021-05-08 20:52 | NUR ---
PT IS A&OX3. SITTING UP IN CHAIR WATCHING TV. PT ON 1LPM OF O2 WITH SATS WNL. HR IN SINUS RHYTHM IN THE 60'S. PT ONTO BEDSIDE COMMODE, VOIDED SMALL AMOUNT OF BRIGHT YELLOW URINE. RETURNED TO BED. PT NEEDS STAND BY ASSIST WHEN UP. PT PLACED ON CPAP AFTER GETTING IN BED. CALL LIGHT IN REACH.
--- NOTE | 2021-05-09 00:17 | NUR ---
PT RESTING IN BED, WAKES EASILY TO NOISE. ASSISTED TO SIP WATER. DENIES FURTHER NEEDS. VSS. SAFETY MEASURES IN PLACE.
[2021-05-09 04:03] LABS: BASOPHILS ABSOLUTE AUTO 0.03 K/mm3 (0.00-0.23); BASOPHILS PERCENT AUTO 0 % (0-2); EOSINOPHILS ABSOLUTE AUTO 0.24 K/mm3 (0.00-0.68); EOSINOPHILS PERCENT AUTO 2 % (0-6); Hematocrit 41.1 % (33.0-51.0); Hemoglobin 13.2 g/dL (11.5-16.0); IMMATURE GRAN ABSOLUTE AUTO 0.06 K/mm3 (0.00-0.10); IMMATURE GRAN PERCENT AUTO 1 % (0-1); LYMPHOCYTES ABSOLUTE AUTO 1.21 K/mm3 (0.84-5.20); LYMPHOCYTES PERCENT AUTO 11 % (21-46); MONOCYTES ABSOLUTE AUTO 0.76 K/mm3 (0.16-1.47); MONOCYTES PERCENT AUTO 7 % (4-13); Mean Corpuscular HGB 27.4 pg (26.0-34.0); Mean Corpuscular HGB Conc 32.1 g/dL (31.5-36.5); Mean Corpuscular Volume 85 fL (80-100); NEUTROPHILS ABSOLUTE AUTO 8.36 K/mm3 (1.96-9.15); NEUTROPHILS PERCENT AUTO 78 % (41-73); Platelet Count 480 K/mm3 (150-400); RDW Coefficient Variation 14.6 % (11.7-14.2); Red Blood Cell Count 4.82 M/mm3 (3.80-5.20); White Blood Cell Count 10.66 K/mm3 (4.00-11.30)
[2021-05-09 04:18] LABS: Albumin, Blood 2.3 g/dL (3.4-5.0); Anion Gap 4 mmol/L (6-16); Blood Urea Nitrogen 28 mg/dL (8-24); Bun/Creatinine Ratio 32.3 (12.0-20.0); CO2, Blood 39 mmol/L (21-32); Calcium, Blood 8.8 mg/dL (8.5-10.1); Chloride, Blood 87 mmol/L (98-108); Creatinine, Blood 0.87 mg/dL (0.40-1.00); Glomerular Filtration Rate >60 (60-); Glucose, Blood 120 mg/dL (70-99); Magnesium, Blood 1.9 mg/dL (1.6-2.4); Potassium, Blood 4.9 mmol/L (3.5-5.5); Sodium, Blood 130 mmol/L (136-145)
[2021-05-09] MEDS ORDERED: METO25ER PO (11:56)
[2021-05-09] MEDS ORDERED: BUME1 PO (11:56)
[2021-05-09] MEDS ORDERED: ELIQUIS5 M2 PO (11:57)
[2021-05-09] MEDS ORDERED: POTCHL20ER PO (12:07)
[2021-05-09] MEDS ORDERED: ENTRESTO 24 MG1 EACH PO (12:08)
--- NOTE | 2021-05-09 13:18 | NUR ---
D/C NOTE PT AND FAMILY EXPRESSED UNDERSTANDING OF DC TEACHING, AND DENY FRUTHER NEEDS. PT AWARE OF PENDING APPOINTMENT WITH PCP, BLOOD DRAW, AND MEDICATIONS AT PHARMACY. IV AND POWER GLIDE REMOVED INTACT, PRESSURE DRESSING APPLIED, NO ACTIVE BLEEDING
--- NOTE | 2021-05-12 09:30 | NUR ---
Per Dr. Hazel on 05/09/2021 patient was appropriate for discharge with HH resumption with [facility] services. Patient was also given a 21 day supply of Eliquis, 2.5MG tablet PO BID. Patient scheduled for a hospital follow up with PCP Dr. Fairbanks on Thursday May 13, 2021 @ 03:40pm.
--- NOTE | 2021-05-12 09:30 | NUR ---
Per Dr. Hazel on 05/09/2021 patient was appropriate for discharge with HH resumption with [facility] services. Patient was also given a 21 day supply of Eliquis, 2.5MG tablet PO BID. Patient scheduled for a hospital follow up with PCP Dr. Fairbanks on Thursday May 13, 2021 @ 03:40pm.
[2021-05-22] MEDS ORDERED: LATA.005SO BOTHEYES (19:57)
[2021-07-15] MEDS ORDERED: ALBU90OI INH (13:47)
[2021-07-15] MEDS ORDERED: GABA100 PO (13:53)
[2021-07-28] MEDS ORDERED: MULVITA PO (11:42)
== END 2021-05-09 13:35 | disposition home health service (06) | DRG 291 ==
LOC: ER 10:11 → PCU 14:42
PROVIDERS: Family Medicine; Internal Medicine; Internal Medicine Nephrology; Student in an Organized Health Care Education/Training Program; ADMIT Internal Medicine
PROC: 0W9B3ZZ Drainage of Left Pleural Cavity, Percutaneous Approach (ICD-10-PCS; 2021-05-03)
PROC: 5A2204Z Restoration of Cardiac Rhythm, Single (ICD-10-PCS; principal; 2021-05-08)
DX: I13.0 Hypertensive heart and chronic kidney disease with heart failure and stage 1 through stage 4 chronic kidney disease, or unspecified chronic kidney disease (principal); I50.23 Acute on chronic systolic (congestive) heart failure; J96.01 Acute respiratory failure with hypoxia; J90 Pleural effusion, not elsewhere classified; E66.2 Morbid (severe) obesity with alveolar hypoventilation; Z68.41 Body mass index [BMI] 40.0-44.9, adult; E87.1 Hypo-osmolality and hyponatremia; E24.9 Cushing's syndrome, unspecified; I48.92 Unspecified atrial flutter; I35.0 Nonrheumatic aortic (valve) stenosis; J44.9 Chronic obstructive pulmonary disease, unspecified; I48.91 Unspecified atrial fibrillation; G89.29 Other chronic pain; D72.829 Elevated white blood cell count, unspecified; N18.9 Chronic kidney disease, unspecified; D63.1 Anemia in chronic kidney disease; M54.9 Dorsalgia, unspecified; E79.0 Hyperuricemia without signs of inflammatory arthritis and tophaceous disease; R73.03 Prediabetes; D75.839 Thrombocytosis, unspecified; I27.20 Pulmonary hypertension, unspecified; Z96.641 Presence of right artificial hip joint; Z88.5 Allergy status to narcotic agent; Z88.8 Allergy status to other drugs, medicaments and biological substances; Z79.82 Long term (current) use of aspirin; Z79.899 Other long term (current) drug therapy; Z79.52 Long term (current) use of systemic steroids; Z85.118 Personal history of other malignant neoplasm of bronchus and lung; Z87.891 Personal history of nicotine dependence; Z90.710 Acquired absence of both cervix and uterus; Z98.890 Other specified postprocedural states; Z90.49 Acquired absence of other specified parts of digestive tract; Z92.21 Personal history of antineoplastic chemotherapy
CPT/HCPCS: 32554; 32555; 36415; 71045; 71046; 76604; 80048; 80053; 80069; 82042; 82530; 82533; 82945; 83615; 83735; 83880; 83930; 83935; 84157; 84295; 84300; 84443; 84484; 84550; 85025; 85520; 85610; 85730; 87015; 87070; 87075; 87116; 87205; 87206; 89051; 90686; 93005; 93010; 93312; 93325; 94644; 94660; 94762; 97161; 97165; 97530; 98960; 99285-25; A9270; C1751; G0008; J1650; J1742; J1940; J2250; J3010; J7030

== ENCOUNTER 2021-05-22 08:32 | Inpatient (IN) | payer OTHER ==
[~2021-05-22] VITALS: Ht 167.6 cm; Wt 107.3 kg
[~2021-05-22 08:32] MED LIST changes: +BUME1 PO; +Bisoprolol Fumar5 MG PO; +DORZOPSO; -DORZOPSO BOTHEYES; +ELIQUIS5 M2 PO; +ENTRESTO 24 MG1 EACH PO; +METO25ER PO; +POTCHL20ER PO
[2021-05-22 09:11] LABS: BASOPHILS ABSOLUTE AUTO 0.03 K/mm3 (0.00-0.23); BASOPHILS PERCENT AUTO 0 % (0-2); EOSINOPHILS ABSOLUTE AUTO 0.17 K/mm3 (0.00-0.68); EOSINOPHILS PERCENT AUTO 2 % (0-6); Hematocrit 44.3 % (33.0-51.0); Hemoglobin 13.6 g/dL (11.5-16.0); IMMATURE GRAN ABSOLUTE AUTO 0.05 K/mm3 (0.00-0.10); IMMATURE GRAN PERCENT AUTO 0 % (0-1); LYMPHOCYTES ABSOLUTE AUTO 1.08 K/mm3 (0.84-5.20); LYMPHOCYTES PERCENT AUTO 9 % (21-46); MONOCYTES PERCENT AUTO 6 % (4-13); Mean Corpuscular HGB 27.1 pg (26.0-34.0); Mean Corpuscular HGB Conc 30.7 g/dL (31.5-36.5); Mean Corpuscular Volume 88 fL (80-100); Mean Platelet Volume 9.5 fL (9.1-12.4); NEUTROPHILS ABSOLUTE AUTO 9.58 K/mm3 (1.96-9.15); NEUTROPHILS PERCENT AUTO 83 % (41-73); Platelet Count 498 K/mm3 (150-400); RDW Coefficient Variation 15.1 % (11.7-14.2); RDW Standard Deviation 48.7 fL (35.1-46.3); Red Blood Cell Count 5.02 M/mm3 (3.80-5.20); White Blood Cell Count 11.61 K/mm3 (4.00-11.30)
[2021-05-22 09:38] LABS: Alanine Aminotransfer (ALT/SGP 31 U/L (12-78); Albumin, Blood 2.8 g/dL (3.4-5.0); Albumin/Globulin Ratio 0.6 (0.8-1.8); Alk Phos 133 U/L (50-136); Anion Gap 6 mmol/L (6-16); Aspartate Aminotrans (AST/SGOT 18 U/L (12-37); Bilirubin, Total 0.5 mg/dL (0.1-1.0); Blood Urea Nitrogen 16 mg/dL (8-24); Bun/Creatinine Ratio 24.7 (12.0-20.0); CO2, Blood 35 mmol/L (21-32); Chloride, Blood 91 mmol/L (98-108); Creatinine, Blood 0.65 mg/dL (0.40-1.00); Globulin, Blood 4.4 g/dL (2.2-4.0); Glomerular Filtration Rate >60 (60-); Glucose, Blood 206 mg/dL (70-99); Potassium, Blood 4.4 mmol/L (3.5-5.5); Sodium, Blood 132 mmol/L (136-145); Total Protein, Blood 7.2 g/dL (6.4-8.2)
[2021-05-22 09:46] LABS: International Normalized Ratio 1.15
[2021-05-22 10:35] LABS: Base Excess Venous 12.7 mmol/L; Bicarbonate Venous 33.3 mmol/L (24.0-30.0); PCO2 Venous 72.7 mmHg (38-42); PO2 Venous 54.7 mmHg (38-42); pH Blood Venous 7.33 (7.34-7.37)
[2021-05-22] MEDS ORDERED: BRIMONIDINE TART5 M2 BOTHEYES (10:43)
--- NOTE | 2021-05-22 11:59 | NUR ---
75 YOF PRESENTS WITH INCREASING SOB. RECENTLY DISCHARGED ON [id number] FOR SAME. H/O COPD, CHF, AORTIC STENOSIS AND LYMPHOMA. USES HOME OXYGEN, BIPAP AT NIGHT AND BASELINE IS 2L PER NC. TODAY 02 IS UP TO 5L PER NC. PT HAS H/O SMOKING AND HAS SINCE QUIT. PT WOULD LIKE INFORMATION FOR COMMUNITY PROGRAMS FOR COPD, CHF AND BLINDNESS. MAY BENEFIT FROM CAREGIVER, HOME HEALTH OR SNF. RECENTLY PLACED ON ELIQUIS.
--- NOTE | 2021-05-22 17:37 | NUR ---
PT ARRIVED TO ROOM PCU08 APROX 1240PM. PT IS A&0X4, ON BIPAP, ABLE TO STAND AND PIVOT FROM ED GURNEY TO BED WITH MINIMAL ASSIST. PT STATES NO CHANGES TO HER MEDICATIONS SINCE HER LAST ADMISSION. PT ORIENTED TO ROOM, CALL LIGHT AND UNIT ROUTINES. PT DENIES ANY NEEDS AT THIS TIME. APROX 1500, PT TAKEN OFF BIPAP AND PUT ON 02 2L NC (HOME REGIMEN), PT TOLERATED WELL WITH SATS 91%. PT ABLE TO AMBULATE TO THE RESTROOM WITH ONE PERSON STANDBY ASSIST AND FWW, ABLE TO VOID. NO ACUTE EVENTS SINCE ADMISSION. PT'S HAS BEEN AT BEDSIDE WELL. NO NEEDS IDENTIFIED AT THIS TIME, WILL CONTINUE TO MONITOR AND GIVE REPORT TO ONCOMING SHIFT RN.
[2021-05-22] MEDS ORDERED: LATA.005SO RIGHTEYE (19:57)
--- NOTE | 2021-05-22 21:29 | NUR ---
ASSUMED CARE OF PATIENT AT APPROXIMATELY 1905 FROM JORDYN Back RN. PATIENT ALERT AND ORIENTED X4; ONE ASSIST WITH FWW OUT OF BED; PATIENT REPORTS BEING LEGALLY BLIND. PATIENT DENIES PAIN, NUMBNESS, TINGLING, DIZZINESS OR NAUSEA. PATIENT REPORTS FEELING MUCH BETTER AFTER FLUID REMOVED IN ED; REPORTS SHE WILL BE READY TO GO HOME TOMORROW. SR ON TELE; OXYGEN SATURATION ABOVE 90% ON 2LPM VIA (BASELINE). RT REQUESTED THIS RN CALL HOSPITALIST DUE TO HOME BIPAP BEING IN ROOM, Q2 ALBERTOL PRN, AND ALSO SPIRIVA NOT ORDERED. THIS RN CALLED DR. JUAN FOR RT REQUESTS AND FOR THIRD EYE DROP THAT WAS NOT ORDERED. HOME BIPAP SET UP. PIV S/L.
[2021-05-23 04:51] LABS: BASOPHILS ABSOLUTE AUTO 0.01 K/mm3 (0.00-0.23); BASOPHILS PERCENT AUTO 0 % (0-2); EOSINOPHILS PERCENT AUTO 0 % (0-6); Hematocrit 39.1 % (33.0-51.0); Hemoglobin 12.2 g/dL (11.5-16.0); IMMATURE GRAN ABSOLUTE AUTO 0.04 K/mm3 (0.00-0.10); IMMATURE GRAN PERCENT AUTO 0 % (0-1); LYMPHOCYTES PERCENT AUTO 6 % (21-46); MONOCYTES ABSOLUTE AUTO 0.54 K/mm3 (0.16-1.47); MONOCYTES PERCENT AUTO 6 % (4-13); Mean Corpuscular HGB 27.2 pg (26.0-34.0); Mean Corpuscular HGB Conc 31.2 g/dL (31.5-36.5); Mean Corpuscular Volume 87 fL (80-100); Mean Platelet Volume 9.4 fL (9.1-12.4); NEUTROPHILS ABSOLUTE AUTO 8.05 K/mm3 (1.96-9.15); NEUTROPHILS PERCENT AUTO 88 % (41-73); Platelet Count 391 K/mm3 (150-400); RDW Coefficient Variation 14.8 % (11.7-14.2); RDW Standard Deviation 47.3 fL (35.1-46.3); Red Blood Cell Count 4.48 M/mm3 (3.80-5.20); White Blood Cell Count 9.14 K/mm3 (4.00-11.30)
[2021-05-23 05:12] LABS: Alanine Aminotransfer (ALT/SGP 23 U/L (12-78); Albumin, Blood 2.3 g/dL (3.4-5.0); Albumin/Globulin Ratio 0.6 (0.8-1.8); Alk Phos 109 U/L (50-136); Anion Gap 4 mmol/L (6-16); Aspartate Aminotrans (AST/SGOT 11 U/L (12-37); Bilirubin, Total 0.4 mg/dL (0.1-1.0); Blood Urea Nitrogen 17 mg/dL (8-24); Bun/Creatinine Ratio 22.4 (12.0-20.0); CO2, Blood 39 mmol/L (21-32); Calcium, Blood 8.6 mg/dL (8.5-10.1); Chloride, Blood 91 mmol/L (98-108); Creatinine, Blood 0.76 mg/dL (0.40-1.00); Globulin, Blood 4.1 g/dL (2.2-4.0); Glomerular Filtration Rate >60 (60-); Glucose, Blood 99 mg/dL (70-99); Potassium, Blood 4.4 mmol/L (3.5-5.5); Sodium, Blood 134 mmol/L (136-145); Total Protein, Blood 6.4 g/dL (6.4-8.2)
--- NOTE | 2021-05-23 05:57 | NUR ---
PATIENT SLEPT ABOUT 7 HOURS LAST NIGHT; NO ACUTE CHANGES TO REPORT.
--- NOTE | 2021-05-23 18:49 | NUR ---
SHIFT SUMMARY A/O X4 AND COOPERATIVE OF CARE. BP'S SOFT WITH SBP RANGING 90-110. OTHER VSS THROUGHOUT SHIFT WITH O2 SATS >96% ON 4L NC. PT HAD A ROUND OF V-TACH, NOTIFIED, TREATED PER EMAR. PT UP TO TOILET MULTIPLE TIEMS THROUGHOUT DAY, SBA, TOLERATED WELL. PT REMAINED ON FLUID RESTRICTION. PT UP IN RECLINER FOR MAJORITY OF SHIFT. NO REPORT OF SOB/DYSPNEA THROUGHOUT SHIFT. NO REPORT OF CHEST PAIN/PRESSURE THROUGHOUT SHIFT.
[2021-05-24 03:58] LABS: BASOPHILS ABSOLUTE AUTO 0.02 K/mm3 (0.00-0.23); BASOPHILS PERCENT AUTO 0 % (0-2); EOSINOPHILS ABSOLUTE AUTO 0.14 K/mm3 (0.00-0.68); EOSINOPHILS PERCENT AUTO 2 % (0-6); Hematocrit 40.1 % (33.0-51.0); Hemoglobin 12.6 g/dL (11.5-16.0); IMMATURE GRAN ABSOLUTE AUTO 0.02 K/mm3 (0.00-0.10); IMMATURE GRAN PERCENT AUTO 0 % (0-1); LYMPHOCYTES ABSOLUTE AUTO 1.04 K/mm3 (0.84-5.20); LYMPHOCYTES PERCENT AUTO 13 % (21-46); MONOCYTES ABSOLUTE AUTO 0.54 K/mm3 (0.16-1.47); MONOCYTES PERCENT AUTO 7 % (4-13); Mean Corpuscular HGB 27.3 pg (26.0-34.0); Mean Corpuscular HGB Conc 31.4 g/dL (31.5-36.5); Mean Corpuscular Volume 87 fL (80-100); Mean Platelet Volume 9.2 fL (9.1-12.4); NEUTROPHILS ABSOLUTE AUTO 6.11 K/mm3 (1.96-9.15); NEUTROPHILS PERCENT AUTO 78 % (41-73); Platelet Count 352 K/mm3 (150-400); RDW Coefficient Variation 15.1 % (11.7-14.2); RDW Standard Deviation 47.8 fL (35.1-46.3); Red Blood Cell Count 4.61 M/mm3 (3.80-5.20); White Blood Cell Count 7.87 K/mm3 (4.00-11.30)
[2021-05-24 04:22] LABS: Alanine Aminotransfer (ALT/SGP 26 U/L (12-78); Albumin, Blood 2.9 g/dL (3.4-5.0); Albumin/Globulin Ratio 0.8 (0.8-1.8); Alk Phos 101 U/L (50-136); Anion Gap 6 mmol/L (6-16); Aspartate Aminotrans (AST/SGOT 12 U/L (12-37); Bilirubin, Total 0.5 mg/dL (0.1-1.0); Blood Urea Nitrogen 20 mg/dL (8-24); CO2, Blood 38 mmol/L (21-32); Calcium, Blood 8.8 mg/dL (8.5-10.1); Chloride, Blood 91 mmol/L (98-108); Creatinine, Blood 0.74 mg/dL (0.40-1.00); Globulin, Blood 3.5 g/dL (2.2-4.0); Glomerular Filtration Rate >60 (60-); Glucose, Blood 117 mg/dL (70-99); Magnesium, Blood 1.6 mg/dL (1.6-2.4); Phosphorus, Blood 2.8 mg/dL (2.5-4.9); Potassium, Blood 3.6 mmol/L (3.5-5.5); Sodium, Blood 135 mmol/L (136-145); Total Protein, Blood 6.4 g/dL (6.4-8.2)
--- NOTE | 2021-05-24 06:42 | NUR ---
SHIFT SUMMARY PT IS ALERT AND ORIENTED. THERE HAVE BEEN NO ACUTE CHANGES T/O THE NIGHT. PT HAS DESATED INTO THE LOW 80'S WHILE ON HOME BIPAP WITH 2L BLEED IN. RT COULD NOT FIT A FULL MASK TO WORK WITH HOME MACHINE. PT IS ON 2L NC WHEN AWAKE WITH SATS ABOVE 92%. PT IS ABLE TO GET UP WITH SBA TO BATHROOM. DENIES CHEST PAIN OR SOB. CALL LIGHT IS WITHIN REACH.
--- NOTE | 2021-05-24 18:15 | NUR ---
SHIFT NOTE PT A/O X4, SITTING UP IN BEDSIDE CHAIR T/O THE DAY. VSS. REPORTS SOME SOB BUT NOT OFF FROM BASELINE. DENIES CP. SKIN PWD AND INTACT. PT WILL STAY OVER NIGHT FOR REPEAT THORACENTESIS TOMORROW. PT SBA TO BATHROOM.NO DRAINAGE NOTED FROM PREVIOUS THORACENTESIS. THERE ARE NO OTHER ACUTE CHANGES THIS SHIFT TO DISCUSS.
[2021-05-25 03:37] LABS: BASOPHILS ABSOLUTE AUTO 0.03 K/mm3 (0.00-0.23); BASOPHILS PERCENT AUTO 0 % (0-2); EOSINOPHILS ABSOLUTE AUTO 0.21 K/mm3 (0.00-0.68); EOSINOPHILS PERCENT AUTO 2 % (0-6); Hematocrit 39.8 % (33.0-51.0); Hemoglobin 12.2 g/dL (11.5-16.0); IMMATURE GRAN ABSOLUTE AUTO 0.03 K/mm3 (0.00-0.10); IMMATURE GRAN PERCENT AUTO 0 % (0-1); LYMPHOCYTES PERCENT AUTO 12 % (21-46); MONOCYTES ABSOLUTE AUTO 0.64 K/mm3 (0.16-1.47); MONOCYTES PERCENT AUTO 7 % (4-13); Mean Corpuscular HGB 27.2 pg (26.0-34.0); Mean Corpuscular HGB Conc 30.7 g/dL (31.5-36.5); Mean Corpuscular Volume 89 fL (80-100); Mean Platelet Volume 9.1 fL (9.1-12.4); NEUTROPHILS ABSOLUTE AUTO 6.74 K/mm3 (1.96-9.15); NEUTROPHILS PERCENT AUTO 78 % (41-73); Platelet Count 352 K/mm3 (150-400); RDW Coefficient Variation 15.2 % (11.7-14.2); Red Blood Cell Count 4.49 M/mm3 (3.80-5.20); White Blood Cell Count 8.65 K/mm3 (4.00-11.30)
[2021-05-25 03:58] LABS: International Normalized Ratio 1.16; Prothrombin Time Results 12.1 Sec (9.7-11.5)
[2021-05-25 03:59] LABS: Alanine Aminotransfer (ALT/SGP 33 U/L (12-78); Albumin, Blood 3.2 g/dL (3.4-5.0); Albumin/Globulin Ratio 0.9 (0.8-1.8); Alk Phos 97 U/L (50-136); Anion Gap 4 mmol/L (6-16); Aspartate Aminotrans (AST/SGOT 10 U/L (12-37); Blood Urea Nitrogen 18 mg/dL (8-24); Bun/Creatinine Ratio 25.3 (12.0-20.0); CO2, Blood 42 mmol/L (21-32); Chloride, Blood 91 mmol/L (98-108); Creatinine, Blood 0.71 mg/dL (0.40-1.00); Globulin, Blood 3.4 g/dL (2.2-4.0); Glomerular Filtration Rate >60 (60-); Glucose, Blood 114 mg/dL (70-99); Potassium, Blood 4.2 mmol/L (3.5-5.5); Sodium, Blood 137 mmol/L (136-145); Total Protein, Blood 6.6 g/dL (6.4-8.2)
--- NOTE | 2021-05-25 06:19 | NUR ---
SHIFT SUMMARY PT IS ALERT AND ORIENTED. VITALS ARE STABLE AND PT IS ON 2L NC WITH SATS ABOVE 92%. THERE HAVE BEEN NO ACUTE CHANGES. PT IS ABLE TO AMBULATE TO BATHROOM WITH MINIMAL ASSISTANCE AND WITHOUT DESATING. PT DENIES CHEST PAIN OR SOB. CALL LIGHT IS WITHIN REACH.
--- NOTE | 2021-05-25 17:42 | NUR ---
PT SUMMARY: NO ACUTE CHNAGE FOR THE SHIFT, PT HAD THORACENTESIS DONE TODAY HAD 650MLS OUT. VITALS HRR REMAINED SR 70'S. BP SYSTOLIC 100-120'S, SATS ABOVE 95% ON 2L OF O2, AFEBRILE. DR MARTINEZ SAW PT TODAY TO POSSIBLY TO ANGIO IN AM DIAGNOSTIC TO REFER TO DR GALLARDO, PT IS AWARE OF THE PLAN AND IS AGREEABLE, IF NOT PT OKAY TO DO AN OUTPATIENT. NO COMPLAINS OF PAIN OR DISCOMFORT FOR THE SHIFT, HAS BEEN GETTING UP SBA TO USE THE BATHROOM DENIES DIZZINESS, GETS SOB AND DESATS TO 85% ON RA WITH EXERTION. CAME IN TO VISIT UPDATED ABOUT PLAN OF CARE. NO OTHER ISSUES REPORTED AT THIS TIME, PT ABLE TO MAKE NEEDS KNOWN, CALL LIGHTS IN REACH WILL REPORT TO ONCOMING SHIFT
[2021-05-26 03:47] LABS: BASOPHILS ABSOLUTE AUTO 0.02 K/mm3 (0.00-0.23); BASOPHILS PERCENT AUTO 0 % (0-2); EOSINOPHILS ABSOLUTE AUTO 0.22 K/mm3 (0.00-0.68); EOSINOPHILS PERCENT AUTO 3 % (0-6); Hematocrit 40.9 % (33.0-51.0); Hemoglobin 12.7 g/dL (11.5-16.0); IMMATURE GRAN ABSOLUTE AUTO 0.04 K/mm3 (0.00-0.10); IMMATURE GRAN PERCENT AUTO 1 % (0-1); LYMPHOCYTES ABSOLUTE AUTO 0.75 K/mm3 (0.84-5.20); LYMPHOCYTES PERCENT AUTO 9 % (21-46); MONOCYTES ABSOLUTE AUTO 0.57 K/mm3 (0.16-1.47); MONOCYTES PERCENT AUTO 7 % (4-13); Mean Corpuscular HGB Conc 31.1 g/dL (31.5-36.5); Mean Corpuscular Volume 87 fL (80-100); Mean Platelet Volume 9.1 fL (9.1-12.4); NEUTROPHILS PERCENT AUTO 82 % (41-73); Platelet Count 345 K/mm3 (150-400); RDW Coefficient Variation 14.8 % (11.7-14.2); RDW Standard Deviation 47.8 fL (35.1-46.3)
[2021-05-26 04:14] LABS: Alanine Aminotransfer (ALT/SGP 30 U/L (12-78); Albumin, Blood 3.5 g/dL (3.4-5.0); Albumin/Globulin Ratio 1.1 (0.8-1.8); Alk Phos 91 U/L (50-136); Anion Gap 6 mmol/L (6-16); Aspartate Aminotrans (AST/SGOT 12 U/L (12-37); Bilirubin, Total 1.1 mg/dL (0.1-1.0); Blood Urea Nitrogen 20 mg/dL (8-24); CO2, Blood 37 mmol/L (21-32); Calcium, Blood 8.9 mg/dL (8.5-10.1); Chloride, Blood 91 mmol/L (98-108); Creatinine, Blood 0.72 mg/dL (0.40-1.00); Globulin, Blood 3.1 g/dL (2.2-4.0); Glomerular Filtration Rate >60 (60-); Glucose, Blood 114 mg/dL (70-99); Potassium, Blood 3.3 mmol/L (3.5-5.5); Sodium, Blood 134 mmol/L (136-145); Total Protein, Blood 6.6 g/dL (6.4-8.2)
--- NOTE | 2021-05-26 05:55 | NUR ---
SHIFT SUMMARY PT ALERT AND ORIENTED X4. ON 2L O2 SATS OVER 97%. BP STABLE. HR SR W/ BBB 60'S/70'S. AFEBRILE. NO C/O SOB OR CHEST PAIN. X1 C/O 6 BACK PAIN MEDICATED PER EMAR. ABLE TO AMBULATE TO BATHROOM INDEPENDENTLY. REMAINS ON FLUID RESTRICTION. NPO SINCE MIDNIGHT FOR POTENTIAL AM ANGIO. IN BED SLEEPING WITH CALL ALARM AT SIDE, WILL CONTINUE TO MONITOR UNTIL REPORT GIVEN TO DAYSHIFT RN.
--- NOTE | 2021-05-26 09:39 | NUR ---
AM NOTE: ALERT AND ORIENTED. DENIES NUMBNESS/TINGLING. LEGALLY BLIND. SBA WHEN UP IN ROOM. ON 2L NASAL CANNULA SATING MID 90'S. STATES SHE HAS O2 AT HOME BUT DOES NOT USE IT. CPAP AT NIGHT/WHEN SLEEPING. TELE SHOWING SINUS RHYTHM WITH BBB. HR 60-70'S. STABLE BP. HEART MURMUR HEARD. DENIES CHEST PAIN/PRESSURE. DR. GALLARDO IN THIS AM, PLAN FOR ANGIO TODAY. PATIENT NPO EXCEPT FOR MEDS THIS AM. DENIES ABDOMINAL PAIN/NAUSEA. FLUID RESTRICTION OF 2000ML/DAY. BOWEL MOVEMENT THIS AM. PRE PROCEDURE COVID TEST COMPLETED. CALL LIGHT IN REACH. DENIES NEEDS AT THIS TIME. WILL CONTINUE TO MONITOR.
[2021-05-26 10:08] LABS: Influenza A, PCR NEGATIVE (NEGATIVE); Influenza B, PCR NEGATIVE (NEGATIVE); Resp Syncytial Virus, PCR NEGATIVE (NEGATIVE); SARS-Cov-2 (COVID-19) PCR, MMC NEGATIVE (NEGATIVE)
--- NOTE | 2021-05-26 10:42 | NUR ---
UPDATE: TAKE TO CARDIAC LICENSING SERVICES CLERK AT 1030. TELE MONITOR NOTIFIED.
--- NOTE | 2021-05-26 13:35 | NUR ---
UPDATE: PATIENT BACK FROM [facility] AT 1150. VITAL SIGNS STABLE. RIGHT RADIAL SITE WNL. VERY MINIMAL DRAINAGE UNDER TR BAND. 13ML IN BAND. RIGHT RADIAL PULSE AND BIOX WNL. SKIN TEAR DISTAL TR BAND WITH BLEEDING, GAUZE AND COBAN IN PLACE. NO BLEEDING FROM ACTUAL ANGIO SITE. NO SIGNS OF HEMATOMA, REMAINS SOFT AND NONTENDER. ARM BOARD IN PLACE. EDUCATION ON POST ANGIO PRECAUTIONS. POST VITALS IN PROGRESS. NS AT 200 ML/HR FOR 500 ML TOTAL INFUSING AT THIS TIME. PATIENT ABLE TO EAT DINNER AND DRINKING WATER. FLUID RESTRICTION MAINTAINED. WILL CONTINUE TO MONITOR.
--- NOTE | 2021-05-26 17:55 | NUR ---
SHIFT SUMMARY: NO ACUTE CHANGES. SEE PREVIOUS NOTES. NO CHANGES TO NEURO. ON ROOM AIR AT THIS TIME SATING MID 90'S. 1-2L NASAL CANNULA ON STANDBY. CPAP AT BEDSIDE FOR NIGHT. TELE REMAINS UNCHANGED. SOFT BP. CALL PLACED TO DR. DUMONT TO UPDATE ON BP AND 1800 MEDS, ORDERS TO HOLD BUMEX AND ALDACTONE. TR BAND REMOVED AT 1530. RIGHT RADIAL SITE REMAINS SOFT AND NONTENDER. SBA TO BEDSIDE COMMODE AT THIS TIME. CALL LIGHT IN REACH. IN RECLINER AT THIS TIME. FLUID RESTRICTION MAINTAINED. WILL CONTINUE TO MONITOR AND REPORT OFF.
[2021-05-27 04:30] LABS: BASOPHILS ABSOLUTE AUTO 0.02 K/mm3 (0.00-0.23); BASOPHILS PERCENT AUTO 0 % (0-2); EOSINOPHILS PERCENT AUTO 3 % (0-6); Hematocrit 40.9 % (33.0-51.0); Hemoglobin 12.5 g/dL (11.5-16.0); IMMATURE GRAN ABSOLUTE AUTO 0.04 K/mm3 (0.00-0.10); IMMATURE GRAN PERCENT AUTO 0 % (0-1); LYMPHOCYTES ABSOLUTE AUTO 0.85 K/mm3 (0.84-5.20); LYMPHOCYTES PERCENT AUTO 9 % (21-46); MONOCYTES ABSOLUTE AUTO 0.73 K/mm3 (0.16-1.47); MONOCYTES PERCENT AUTO 8 % (4-13); Mean Corpuscular HGB 27.1 pg (26.0-34.0); Mean Corpuscular HGB Conc 30.6 g/dL (31.5-36.5); Mean Corpuscular Volume 89 fL (80-100); Mean Platelet Volume 9.3 fL (9.1-12.4); NEUTROPHILS ABSOLUTE AUTO 7.41 K/mm3 (1.96-9.15); NEUTROPHILS PERCENT AUTO 79 % (41-73); Platelet Count 361 K/mm3 (150-400); RDW Coefficient Variation 15.1 % (11.7-14.2); RDW Standard Deviation 48.9 fL (35.1-46.3); Red Blood Cell Count 4.61 M/mm3 (3.80-5.20); White Blood Cell Count 9.35 K/mm3 (4.00-11.30)
[2021-05-27 04:45] LABS: International Normalized Ratio 1.13; Prothrombin Time Results 11.8 Sec (9.7-11.5)
[2021-05-27 04:50] LABS: Alanine Aminotransfer (ALT/SGP 27 U/L (12-78); Albumin, Blood 3.2 g/dL (3.4-5.0); Alk Phos 91 U/L (50-136); Anion Gap 5 mmol/L (6-16); Aspartate Aminotrans (AST/SGOT 9 U/L (12-37); Bilirubin, Total 0.7 mg/dL (0.1-1.0); Blood Urea Nitrogen 22 mg/dL (8-24); Bun/Creatinine Ratio 25.4 (12.0-20.0); CO2, Blood 35 mmol/L (21-32); Chloride, Blood 94 mmol/L (98-108); Creatinine, Blood 0.87 mg/dL (0.40-1.00); Globulin, Blood 3.2 g/dL (2.2-4.0); Glomerular Filtration Rate >60 (60-); Glucose, Blood 113 mg/dL (70-99); Potassium, Blood 3.6 mmol/L (3.5-5.5); Sodium, Blood 134 mmol/L (136-145); Total Protein, Blood 6.4 g/dL (6.4-8.2)
--- NOTE | 2021-05-27 05:43 | NUR ---
SHIFT SUMMARY PATIENT ALERT AND ORIENTED x4. VSS. PATIENT ON 2L T/O NIGHT WITH O2 >90%. NO COMPLAINTS OF CHEST PAIN THIS SHIFT. RIGHT RADIAL SITE REMAINS WNL, DRESSING C/D/I. NO HEMATOMA. PATIENT AMBULATING IN ROOM SBA. FLUID RESTRICTION MAINTAINED THIS SHIFT. PATIENT ASLEEP FOR MAJORITY OF SHIFT. CALL LIGHT IN REACH, BED IN LOW POSITION. WILL REPORT TO DAY SHIFT RN.
--- NOTE | 2021-05-27 07:24 | NUR ---
Dr. Pizano here to see the patient.
--- NOTE | 2021-05-27 10:05 | NUR ---
Dr. Pizano here again to see the patient. Plan is for discharge today, pt will follow up per Dr. Marshall for TAVR as an outpatient.
[2021-05-27] MEDS ORDERED: SPIR25 PO (11:35)
[2021-05-27] MEDS ORDERED: ASPI81CH PO (11:36)
[2021-05-27] MEDS ORDERED: ACET250 PO (11:36)
[2021-05-27] MEDS ORDERED: ATOR40TA PO (11:36)
--- NOTE | 2021-05-27 12:46 | NUR ---
Pts at the bedside at time of discharge instructions. The pt and her were educated about follow up appointments, current medications, and care of the right wrist post radial arterial access during angiogram yesterday. Educational materials were provided regarding TAVR and heart failure. Written materials also given with current medications and information for follow up doctor's appointments with [facility].
== END 2021-05-27 12:23 | disposition home or self-care (01) | DRG 286 ==
LOC: ER 08:32 → PCU 10:06 → MEDS 10:06 → PCU 12:45
PROVIDERS: Family Medicine; Hospitalist; Internal Medicine Cardiovascular Disease; Physician Assistant; ADMIT Family Medicine
PROC: 0W9B3ZZ Drainage of Left Pleural Cavity, Percutaneous Approach (ICD-10-PCS; principal; 2021-05-22)
PROC: 5A09357 Assistance with Respiratory Ventilation, Less than 24 Consecutive Hours, Continuous Positive Airway Pressure (ICD-10-PCS; 2021-05-22)
PROC: 4A023N7 Measurement of Cardiac Sampling and Pressure, Left Heart, Percutaneous Approach (ICD-10-PCS; 2021-05-26)
PROC: B2121ZZ Fluoroscopy of Single Coronary Artery Bypass Graft using Low Osmolar Contrast (ICD-10-PCS; 2021-05-26)
DX: I50.23 Acute on chronic systolic (congestive) heart failure (principal); J96.01 Acute respiratory failure with hypoxia; E87.1 Hypo-osmolality and hyponatremia; J90 Pleural effusion, not elsewhere classified; I42.8 Other cardiomyopathies; Z20.822 Contact with and (suspected) exposure to COVID-19; Z66 Do not resuscitate; E66.9 Obesity, unspecified; Z68.39 Body mass index [BMI] 39.0-39.9, adult; I35.0 Nonrheumatic aortic (valve) stenosis; E87.6 Hypokalemia; I48.0 Paroxysmal atrial fibrillation; I25.10 Atherosclerotic heart disease of native coronary artery without angina pectoris; G47.33 Obstructive sleep apnea (adult) (pediatric); J44.9 Chronic obstructive pulmonary disease, unspecified; M54.9 Dorsalgia, unspecified; G89.29 Other chronic pain; Z88.5 Allergy status to narcotic agent; Z88.8 Allergy status to other drugs, medicaments and biological substances; Z96.649 Presence of unspecified artificial hip joint; Z79.01 Long term (current) use of anticoagulants; Z79.899 Other long term (current) drug therapy; Z87.891 Personal history of nicotine dependence; Z90.710 Acquired absence of both cervix and uterus; Z85.72 Personal history of non-Hodgkin lymphomas; Z92.21 Personal history of antineoplastic chemotherapy; Z99.81 Dependence on supplemental oxygen; Z85.118 Personal history of other malignant neoplasm of bronchus and lung
CPT/HCPCS: 0241U; 32555; 36415; 71045; 80053; 82803; 83735; 83880; 84100; 84484; 85025; 85610; 85730; 93005; 93010; 93454; 94640; 94644; 94660; 94664; 94760; 94762; 96374-59; 97165; 97535; 99152; 99153; 99285-25; A9270; C1769; C1887; C1894; J1644; J2250; J2930; J3010; J7030; J7040; J7050; P9046; Q9967

== ENCOUNTER 2021-07-30 07:18 | Day surgery (SDC) | payer OTHER ==
[~2021-07-30] VITALS: Ht 167.6 cm; Wt 105.9 kg
[~2021-07-30 07:18] MED LIST changes: +ACET250 PO; +ALBU90OI INH; +ATOR40TA PO; +BRIMONIDINE TART5 M2 BOTHEYES; -DORZOPSO; +DORZOPSO BOTHEYES; +GABA100 PO; +LATA.005SO BOTHEYES; +MULVITA PO
--- NOTE | 2021-07-30 07:53 | NUR ---
ARRIVED INTO [facility] ADMISSION STARTED.
--- NOTE | 2021-07-30 10:07 | NUR ---
07/30/21 Mila Flanagan PATIENT LAST TOOK HER METOPROLOL 25MG YESTERDAY, 07/29, IN THE EVENING.
--- NOTE | 2021-07-30 11:53 | NUR ---
PT DENIES PAIN OR NAUSEA p PROCEDURE. R ARM INCISION c SKIN GLUE, CDI. PT TOLERATES PO FLUIDS AND CRACKERS s DIFFICULTY. MEDICATED C NORCO 5/325 1 TAB PO. PT DRESSES SELF s DIFFICULTY. IV DC'D, CATH INTACT AND PRESSURE DRESSING APPLIED. OTD IN NAD C VIA, ESCORTED BY STAFF AND S/O. HOME C , SAFE RIDE HOME.
== END 2021-07-30 23:22 | disposition home or self-care (01) ==
LOC: ORSCMMR 07:18 → ORD 08:45 → ORSCMMR 23:22
PROVIDERS: Surgery
PROC: 0JBD0ZZ Excision of Right Upper Arm Subcutaneous Tissue and Fascia, Open Approach (ICD-10-PCS; principal; 2021-07-30 08:45)
DX: C4A.9 Merkel cell carcinoma, unspecified (principal); I10 Essential (primary) hypertension; I25.10 Atherosclerotic heart disease of native coronary artery without angina pectoris; I48.91 Unspecified atrial fibrillation; Z79.01 Long term (current) use of anticoagulants; J44.9 Chronic obstructive pulmonary disease, unspecified; E66.9 Obesity, unspecified; Z68.37 Body mass index [BMI] 37.0-37.9, adult; Z79.899 Other long term (current) drug therapy; I50.9 Heart failure, unspecified; I27.20 Pulmonary hypertension, unspecified; Z85.118 Personal history of other malignant neoplasm of bronchus and lung; Z85.72 Personal history of non-Hodgkin lymphomas
CPT/HCPCS: A9270; J0690; J7120

== ENCOUNTER 2024-01-07 09:18 | Emergency (ER) | payer OTHER ==
[~2024-01-07] VITALS: Ht 162.6 cm; Wt 99.8 kg
[2024-01-07] MEDS ORDERED: CefTRIAXone Sodium 1,000 MG in NS 50 ML IV ONE (10:20)
[2024-01-07] MEDS ORDERED: Ondansetron HCl 2 MG / ML 2ML Vial IV ONE (10:20)
[2024-01-07] MEDS ORDERED: Morphine Sulfate 4 MG/1 ML Injection IV ONE (10:20)
[2024-01-07 10:38] LABS: BASOPHILS ABSOLUTE AUTO 0.02 K/mm3 (0.00-0.23); BASOPHILS PERCENT AUTO 0 % (0-2); EOSINOPHILS ABSOLUTE AUTO 0.29 K/mm3 (0.00-0.68); EOSINOPHILS PERCENT AUTO 3 % (0-6); Hematocrit 43.1 % (33.0-51.0); Hemoglobin 13.8 g/dL (11.5-16.0); IMMATURE GRAN ABSOLUTE AUTO 0.03 K/mm3 (0.00-0.10); IMMATURE GRAN PERCENT AUTO 0 % (0-1); LYMPHOCYTES ABSOLUTE AUTO 0.94 K/mm3 (0.84-5.20); LYMPHOCYTES PERCENT AUTO 10 % (21-46); MONOCYTES PERCENT AUTO 8 % (4-13); Mean Corpuscular HGB 28.2 pg (26.0-34.0); Mean Corpuscular Volume 88 fL (80-100); Mean Platelet Volume 9.3 fL (9.1-12.4); NEUTROPHILS ABSOLUTE AUTO 7.13 K/mm3 (1.96-9.15); NEUTROPHILS PERCENT AUTO 78 % (41-73); Platelet Count 194 K/mm3 (150-400); RDW Coefficient Variation 14.6 % (11.7-14.2); RDW Standard Deviation 46.6 fL (35.1-46.3); White Blood Cell Count 9.11 K/mm3 (4.00-11.30)
[2024-01-07 11:52] LABS: Albumin, Blood 2.8 g/dL (3.4-5.0); Albumin/Globulin Ratio 0.8 (0.8-1.8); Bilirubin, Total 0.6 mg/dL (0.1-1.0); Bun/Creatinine Ratio 24.8 (12.0-20.0); C-REACTIVE PROTEIN, EXT RANGE 5.49 mg/dL (0.000-0.300); Calcium, Blood 8.8 mg/dL (8.5-10.1); Creatinine, Blood 0.65 mg/dL (0.40-1.00); Globulin, Blood 3.6 g/dL (2.2-4.0); Magnesium, Blood 1.9 mg/dL (1.6-2.4); Total Protein, Blood 6.4 g/dL (6.4-8.2)
[2024-01-07] MEDS ORDERED: SULTRIDS PO (12:57)
[2024-01-07 13:15] VITALS: BP 138/76
== END 2024-01-07 12:59 | disposition home or self-care (01) ==
LOC: ER 09:18
PROVIDERS: Student in an Organized Health Care Education/Training Program
DX: S80.02XA Contusion of left knee, initial encounter (principal); S40.011A Contusion of right shoulder, initial encounter; S70.12XA Contusion of left thigh, initial encounter; L03.116 Cellulitis of left lower limb; J96.91 Respiratory failure, unspecified with hypoxia; J44.9 Chronic obstructive pulmonary disease, unspecified; G47.30 Sleep apnea, unspecified; W01.0XXA Fall on same level from slipping, tripping and stumbling without subsequent striking against object, initial encounter; Z87.891 Personal history of nicotine dependence; Z79.82 Long term (current) use of aspirin; Z79.899 Other long term (current) drug therapy; Z88.5 Allergy status to narcotic agent; Z88.8 Allergy status to other drugs, medicaments and biological substances
CPT/HCPCS: 73030; 80053; 83735; 85025; 85651; 86140; 96365; 96375; 99284-25; J0696; J2270; J2405

== ENCOUNTER 2024-01-10 10:58 | Emergency (ER) | payer OTHER ==
[~2024-01-10] VITALS: Ht 170.2 cm; Wt 108.4 kg
[~2024-01-10 10:58] MED LIST changes: +SULTRIDS PO
[2024-01-10 11:48] VITALS: BP 165/89
[2024-01-10 12:15] LABS: BASOPHILS ABSOLUTE AUTO 0.03 K/mm3 (0.00-0.23); BASOPHILS PERCENT AUTO 0 % (0-2); EOSINOPHILS ABSOLUTE AUTO 0.25 K/mm3 (0.00-0.68); EOSINOPHILS PERCENT AUTO 2 % (0-6); Hematocrit 44.7 % (33.0-51.0); Hemoglobin 14.6 g/dL (11.5-16.0); IMMATURE GRAN ABSOLUTE AUTO 0.02 K/mm3 (0.00-0.10); IMMATURE GRAN PERCENT AUTO 0 % (0-1); LYMPHOCYTES ABSOLUTE AUTO 1.02 K/mm3 (0.84-5.20); LYMPHOCYTES PERCENT AUTO 10 % (21-46); MONOCYTES ABSOLUTE AUTO 0.49 K/mm3 (0.16-1.47); MONOCYTES PERCENT AUTO 5 % (4-13); Mean Corpuscular HGB 28.5 pg (26.0-34.0); Mean Corpuscular HGB Conc 32.7 g/dL (31.5-36.5); Mean Corpuscular Volume 87 fL (80-100); Mean Platelet Volume 9.1 fL (9.1-12.4); NEUTROPHILS ABSOLUTE AUTO 8.81 K/mm3 (1.96-9.15); NEUTROPHILS PERCENT AUTO 83 % (41-73); Platelet Count 215 K/mm3 (150-400); RDW Coefficient Variation 14.6 % (11.7-14.2); RDW Standard Deviation 46.6 fL (35.1-46.3); Red Blood Cell Count 5.12 M/mm3 (3.80-5.20); White Blood Cell Count 10.62 K/mm3 (4.00-11.30)
[2024-01-10 12:36] LABS: Albumin, Blood 2.8 g/dL (3.4-5.0); Albumin/Globulin Ratio 0.7 (0.8-1.8); Bilirubin, Total 0.5 mg/dL (0.1-1.0); Bun/Creatinine Ratio 23.8 (12.0-20.0); C-REACTIVE PROTEIN, EXT RANGE 6.77 mg/dL (0.000-0.300); Calcium, Blood 9.1 mg/dL (8.5-10.1); Creatinine, Blood 0.67 mg/dL (0.40-1.00); Total Protein, Blood 6.8 g/dL (6.4-8.2)
[2024-01-11] MEDS ORDERED: LISINOPRIL2.5 MG PO (11:31)
[2024-01-11] MEDS ORDERED: ACET325 PO (16:37)
== END 2024-01-10 13:48 | disposition other institution (70) ==
LOC: ER 10:58
PROVIDERS: Physician Assistant
DX: M79.89 Other specified soft tissue disorders (principal); Z53.29 Procedure and treatment not carried out because of patient's decision for other reasons
CPT/HCPCS: 73560-LT; 80053; 85025; 85651; 86140; 99282-25

== ENCOUNTER 2024-01-11 11:13 | Inpatient (IN) | payer OTHER ==
[~2024-01-11] VITALS: Ht 170.2 cm; Wt 115.6 kg
[2024-01-11] MEDS ORDERED: LISINOPRIL2.5 MG PO (11:31)
[2024-01-11 12:07] LABS: BASOPHILS ABSOLUTE AUTO 0.02 K/mm3 (0.00-0.23); BASOPHILS PERCENT AUTO 0 % (0-2); EOSINOPHILS ABSOLUTE AUTO 0.16 K/mm3 (0.00-0.68); EOSINOPHILS PERCENT AUTO 2 % (0-6); Hematocrit 44.1 % (33.0-51.0); Hemoglobin 14.1 g/dL (11.5-16.0); IMMATURE GRAN ABSOLUTE AUTO 0.03 K/mm3 (0.00-0.10); IMMATURE GRAN PERCENT AUTO 0 % (0-1); LYMPHOCYTES ABSOLUTE AUTO 0.85 K/mm3 (0.84-5.20); LYMPHOCYTES PERCENT AUTO 10 % (21-46); MONOCYTES ABSOLUTE AUTO 0.57 K/mm3 (0.16-1.47); MONOCYTES PERCENT AUTO 6 % (4-13); Mean Corpuscular HGB 28.4 pg (26.0-34.0); Mean Corpuscular Volume 89 fL (80-100); Mean Platelet Volume 9.8 fL (9.1-12.4); NEUTROPHILS PERCENT AUTO 82 % (41-73); Platelet Count 202 K/mm3 (150-400); RDW Coefficient Variation 14.9 % (11.7-14.2); RDW Standard Deviation 48.4 fL (35.1-46.3); Red Blood Cell Count 4.97 M/mm3 (3.80-5.20); White Blood Cell Count 8.93 K/mm3 (4.00-11.30)
[2024-01-11 12:26] LABS: Albumin, Blood 2.7 g/dL (3.4-5.0); Albumin/Globulin Ratio 0.7 (0.8-1.8); Bilirubin, Total 0.5 mg/dL (0.1-1.0); Bun/Creatinine Ratio 21.8 (12.0-20.0); Calcium, Blood 9.4 mg/dL (8.5-10.1); Creatinine, Blood 0.64 mg/dL (0.40-1.00); Globulin, Blood 3.7 g/dL (2.2-4.0); Potassium, Blood 4.5 mmol/L (3.5-5.5); Total Protein, Blood 6.4 g/dL (6.4-8.2)
[2024-01-11] MEDS ORDERED: CeFAZolin Sodium 2,000 MG in NS 100 ML IV ONE (15:30)
[2024-01-11] MEDS ORDERED: ACET325 PO (16:37)
[2024-01-11] MEDS ORDERED: OxyCODONE HCL 5 MG TAB PO PRN (17:20)
[2024-01-11] MEDS ORDERED: Acetaminophen 325 MG TABLET PO PRN (17:25)
[2024-01-11] MEDS ORDERED: FLU VACC TS2024-25(6MOS UP)/PF 45 MCG/0.5 ML SYRINGE IM ONE (17:25)
[2024-01-11] MEDS ORDERED: CefTRIAXone Sodium 1,000 MG in NS 100 ML IV SCH (18:30)
[2024-01-11] MEDS ORDERED: Vancomycin HCL 1,250 MG in NS 250 ML IV ONE (18:40)
[2024-01-11] MEDS ORDERED: Ipratropium/Albuterol SulF 2.5-0.5MG/3 ML Amp INH PRN (19:05)
[2024-01-11] MEDS ORDERED: Mometasone/Formoterol MDI 200/5 mcg 13 GM INH SCH (19:30)
--- NOTE | 2024-01-11 20:40 | NUR ---
ARRIVAL TO UNIT PT ARRIVED TO UNIT VIA GOURNEY, SLID TO BED. PT ABLE TO PARTICIPATE IN ROLLING IN BED TO REMOVE LINENS. A&0 x4. 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 VSS, BASELINE 2L O2 WHILE ASLEEP R/T BEATRIZ & USE OF HOME CPAP. TOLERATING ORALS. L KNEE TO CALF SWOLLEN. LOCALIZED AT THE KNEE CAP AREA, THE AREA APPEARS BLACK. MOVING AWAY FROM THE KNEECAP, THE SWELLING APPEARS MORE RED, FROM THE BOTTOM OF THE CALF TO THE TOP OF THE L THIGH, THE AREA APPEARS PINK. PT REPORTS NUMBNESS TO KNEECAP BUT SENSATION IN CALF. PT DENIES PAIN AT THIS TIME. AT BEDSIDE UPON ARRIVAL TO UNIT. NO STATED NEEDS. CALL LIGHT IN REACH, BED IN LOWEST POSITION, ORIENTED TO UNIT.
[2024-01-11] MEDS ORDERED: Latanoprost 0.005% Opth Soln 2.5 ML BOTHEYES SCH (21:00)
[2024-01-11] MEDS ORDERED: Bumetanide 1 MG Tab PO SCH (21:00)
[2024-01-11] MEDS ORDERED: Brimonidine Tartrate 0.2% Opth 5 ml BOTHEYES SCH (21:00)
[2024-01-11] MEDS ORDERED: Gabapentin 100 MG Cap PO SCH (21:00)
[2024-01-11] MEDS ORDERED: Atorvastatin 40 MG Tab PO SCH (21:00)
[2024-01-11] MEDS ORDERED: Dorzolamide 2% Opth Soln BOTHEYES SCH (21:00)
[2024-01-11] MEDS ORDERED: Sennosides 8.6 MG Tab PO SCH (21:00)
[2024-01-11 21:33] VITALS: BP 137/70
[2024-01-12] VITALS (21 sets, daily range): BP systolic 118–158; BP diastolic 65–94
[2024-01-12] MEDS ORDERED: NS 250 ML IV PRN (01:05)
--- NOTE | 2024-01-12 04:56 | NUR ---
SHIFT SUMMARY S/P L KNEE HEMATOMA. NO ACUTE CHANGES OVERNIGHT. VSS, PT ON 2L O2 VIA NC WHILE ASLEEP. NPO IN ANTICIPATION OF SURGERY LATER TODAY. NO VISUAL CHANGES TO LLE. PT VOIDING & USING FWW TO STAND/PIVOT TO BSC. PT RESTING IN CHAIR. CALL LIGHT IN REACH, WILL REPORT TO DAY RN.
[2024-01-12 05:03] LABS: BASOPHILS ABSOLUTE AUTO 0.04 K/mm3 (0.00-0.23); BASOPHILS PERCENT AUTO 0 % (0-2); EOSINOPHILS ABSOLUTE AUTO 0.24 K/mm3 (0.00-0.68); EOSINOPHILS PERCENT AUTO 3 % (0-6); Hematocrit 44.1 % (33.0-51.0); Hemoglobin 13.9 g/dL (11.5-16.0); IMMATURE GRAN ABSOLUTE AUTO 0.03 K/mm3 (0.00-0.10); IMMATURE GRAN PERCENT AUTO 0 % (0-1); LYMPHOCYTES ABSOLUTE AUTO 0.78 K/mm3 (0.84-5.20); LYMPHOCYTES PERCENT AUTO 8 % (21-46); MONOCYTES ABSOLUTE AUTO 0.69 K/mm3 (0.16-1.47); MONOCYTES PERCENT AUTO 7 % (4-13); Mean Corpuscular HGB 27.9 pg (26.0-34.0); Mean Corpuscular HGB Conc 31.5 g/dL (31.5-36.5); Mean Corpuscular Volume 89 fL (80-100); Mean Platelet Volume 9.8 fL (9.1-12.4); NEUTROPHILS ABSOLUTE AUTO 7.66 K/mm3 (1.96-9.15); NEUTROPHILS PERCENT AUTO 81 % (41-73); Platelet Count 201 K/mm3 (150-400); RDW Coefficient Variation 14.8 % (11.7-14.2); RDW Standard Deviation 47.8 fL (35.1-46.3); Red Blood Cell Count 4.98 M/mm3 (3.80-5.20); White Blood Cell Count 9.44 K/mm3 (4.00-11.30)
[2024-01-12 05:51] LABS: Albumin, Blood 2.5 g/dL (3.4-5.0); Albumin/Globulin Ratio 0.7 (0.8-1.8); Bilirubin, Total 0.5 mg/dL (0.1-1.0); Bun/Creatinine Ratio 17.5 (12.0-20.0); Calcium, Blood 8.7 mg/dL (8.5-10.1); Creatinine, Blood 0.74 mg/dL (0.40-1.00); Globulin, Blood 3.7 g/dL (2.2-4.0); Potassium, Blood 4.1 mmol/L (3.5-5.5); Total Protein, Blood 6.2 g/dL (6.4-8.2)
[2024-01-12] MEDS ORDERED: Vancomycin HCL 750 MG in NS 250 ML IV SCH (07:00)
--- NOTE | 2024-01-12 08:02 | NUR ---
0730 AFter bedside report, pt assisted up to BSC to void. Denies any pain afterwards while sitting in recliner. LLE is elevated. DNR purple band placed on right wrist. Continuous oximetery ordered and placed (pt has CPAP at home). She will have her bring in her home machine today she said.
[2024-01-12] MEDS ORDERED: Montelukast Sodium 10 MG Tab PO SCH (09:00)
[2024-01-12] MEDS ORDERED: Lactated Ringer's 500 ML IV SCH (09:00)
[2024-01-12] MEDS ORDERED: Lisinopril 5 MG Tab PO SCH (09:00)
[2024-01-12] MEDS ORDERED: Midazolam HCl 1MG / ML 2ML Vial ONE (12:40)
[2024-01-12] MEDS ORDERED: Lidocaine HCl 2% 20 ML MDV ONE (12:40)
[2024-01-12] MEDS ORDERED: FentaNYL Citrate 50 MCG/ML 2 ML Injection ONE ×3 (12:40→15:56)
[2024-01-12] MEDS ORDERED: propofoL 20 ML IV ONE (12:40)
[2024-01-12] MEDS ORDERED: Lactated Ringer's 1,000 ML IV SCH (13:10)
--- NOTE | 2024-01-12 14:49 | NUR ---
PT TO RESTROOM WITH SBA. [facility] STAFF AT BEDSIDE TO INTERROGATE PACEMAKER.
[2024-01-12] MEDS ORDERED: Ondansetron HCl 2 MG / ML 2ML Vial ONE (15:24)
[2024-01-12] MEDS ORDERED: Dexamethasone Sod Phos 10 MG/ML 1ML VIAL ONE (15:24)
[2024-01-12] MEDS ORDERED: Bupivacaine 0.5% HCl 5 MG/ML 30MLVIAL ONE (15:36)
--- NOTE | 2024-01-12 15:47 | NUR ---
01/12/24 Neelam Hill PATIENT IS ON SCHEDULED ANTIBIOTICS. NO ADDITIONAL PREOP ANTIBIOTICS ORDERED.
[2024-01-12] MEDS ORDERED: Ketorolac Tromethamine 30mg Vial ONE (15:56)
[2024-01-12] MEDS ORDERED: HYDROmorphone HCl/Pf 1MG SYR ONE (16:10)
--- NOTE | 2024-01-12 17:20 | NUR ---
Pt returned from PACU . She is a little drowsy and forgetful; Agapito is at the bedside. Left knee in wound vac dressing, in place and functioning properly. Pt also has ice packs on both sides of the knee for pain relief. States that her pain is 5/10, tolerable for her she says. RT here and set up home CPAP with 2 l O2 bleed in for sleep. Vital signs are stable. Continuous oximetry is in place. She asked for some chicken noodle soup and the FISHING ROD MARKER provided it for her. IV antibiotics are infusing after she took her scheduled oral meds.
[2024-01-12] MEDS ORDERED: Metoprolol Succinate 25 MG TABCR PO SCH (18:00)
--- NOTE | 2024-01-12 18:19 | NUR ---
Call to RT; pt is on home CPAP, with nasal pillow and 2 l bleed in but is sleeping with her mouth open and having hypoxia to 78-80% while asleep. She awakens easily, spo2 improves to 90-93 % when awake; however she says that she normally sleeps on her side at home to prevent the mouth breathing with her CPAP on. Due to her knee surgery and pain, she does not want to lie on her side right now. Call to RT Cliff to request assistance, perhaps a mask that covers the nose and mouth, or a chip strap. He will send an RT to help us when they are finished with report.
--- NOTE | 2024-01-12 18:21 | NUR ---
Ice packs refreshed to the left knee due to pt c/o pain.
[2024-01-13 04:13] VITALS: BP 137/81
--- NOTE | 2024-01-13 04:57 | NUR ---
SHIFT SUMMARY NOC. PT POD 1 FOR LEFT KNEE I&D. PT VOIDING URINE AND TOLERATING PO INTAKE. PT USING CPAP WITH O2 BLEED IN, NO DESAT EVENTS THIS SHIFT. PT MEDICATED FOR PAIN WITH REPORTED RELIEF. PT A/O X4. WOUND VAC IN PLACE ON LEFT KNEE, COMPRESSED AND FREE OF KINKS. PT UP TO BSC TO VOID AND TOLERATED WELL. BED IN LOWEST POSITION, CALL LIGHT IN REACH.
[2024-01-13 06:00] LABS: BASOPHILS ABSOLUTE AUTO 0.01 K/mm3 (0.00-0.23); BASOPHILS PERCENT AUTO 0 % (0-2); EOSINOPHILS PERCENT AUTO 0 % (0-6); Hematocrit 43.5 % (33.0-51.0); Hemoglobin 13.9 g/dL (11.5-16.0); IMMATURE GRAN ABSOLUTE AUTO 0.03 K/mm3 (0.00-0.10); IMMATURE GRAN PERCENT AUTO 0 % (0-1); LYMPHOCYTES ABSOLUTE AUTO 0.44 K/mm3 (0.84-5.20); LYMPHOCYTES PERCENT AUTO 5 % (21-46); MONOCYTES PERCENT AUTO 4 % (4-13); Mean Corpuscular HGB 28.5 pg (26.0-34.0); Mean Corpuscular Volume 89 fL (80-100); Mean Platelet Volume 9.1 fL (9.1-12.4); NEUTROPHILS ABSOLUTE AUTO 7.47 K/mm3 (1.96-9.15); NEUTROPHILS PERCENT AUTO 91 % (41-73); Platelet Count 204 K/mm3 (150-400); RDW Coefficient Variation 14.6 % (11.7-14.2); RDW Standard Deviation 47.8 fL (35.1-46.3); Red Blood Cell Count 4.88 M/mm3 (3.80-5.20); White Blood Cell Count 8.25 K/mm3 (4.00-11.30)
[2024-01-13 06:55] LABS: Albumin, Blood 2.6 g/dL (3.4-5.0); Albumin/Globulin Ratio 0.6 (0.8-1.8); Bilirubin, Total 0.4 mg/dL (0.1-1.0); Bun/Creatinine Ratio 24.8 (12.0-20.0); Calcium, Blood 8.5 mg/dL (8.5-10.1); Creatinine, Blood 0.81 mg/dL (0.40-1.00); Potassium, Blood 4.7 mmol/L (3.5-5.5); Total Protein, Blood 6.6 g/dL (6.4-8.2)
[2024-01-13 07:24] LABS: Vancomycin, Trough 11.6 ug/mL (5.0-10.0)
[2024-01-13 07:27] VITALS: BP 127/55
[2024-01-13] MEDS ORDERED: Enoxaparin 40 MG/0.4 ML SYR SC SCH (10:00)
[2024-01-13 14:49] VITALS: BP 100/50
--- NOTE | 2024-01-13 17:31 | NUR ---
Pt. is awake in bed and welcomes my visit. Pt. is pleasant. Facilitated a life review and considered matters of denis and belief. Listened with interest and empathy. Pt. displayed evidence of trust and engagement. Prayed with the Pt. Pt. verbalized gratitiude for the spiritual care visit.
[2024-01-13 19:31] VITALS: BP 102/49
--- NOTE | 2024-01-13 19:35 | NUR ---
SHIFT SUMMARY POD1 L KNEE I&D, A/OX4, VSS, TOLEARTING PO, PAIN WELL MANAGED, ABLE TO WALK THE HALLS WITH THERAPY, UP IN THE CHAIR T/O MOST OF THE SHIFT TODAY, MEDS ORDERED. NO ACUTE EVENTS THIS SHIFT, CALL LIGHT IN REACH.
[2024-01-14 03:59] VITALS: BP 125/56
[2024-01-14 05:14] LABS: BASOPHILS ABSOLUTE AUTO 0.04 K/mm3 (0.00-0.23); BASOPHILS PERCENT AUTO 0 % (0-2); EOSINOPHILS PERCENT AUTO 3 % (0-6); Hematocrit 38.8 % (33.0-51.0); Hemoglobin 12.4 g/dL (11.5-16.0); IMMATURE GRAN ABSOLUTE AUTO 0.03 K/mm3 (0.00-0.10); IMMATURE GRAN PERCENT AUTO 0 % (0-1); LYMPHOCYTES ABSOLUTE AUTO 1.03 K/mm3 (0.84-5.20); LYMPHOCYTES PERCENT AUTO 11 % (21-46); MONOCYTES ABSOLUTE AUTO 0.75 K/mm3 (0.16-1.47); MONOCYTES PERCENT AUTO 8 % (4-13); Mean Corpuscular HGB 28.1 pg (26.0-34.0); Mean Corpuscular Volume 88 fL (80-100); Mean Platelet Volume 9.7 fL (9.1-12.4); NEUTROPHILS ABSOLUTE AUTO 7.59 K/mm3 (1.96-9.15); NEUTROPHILS PERCENT AUTO 78 % (41-73); Platelet Count 219 K/mm3 (150-400); RDW Coefficient Variation 14.8 % (11.7-14.2); Red Blood Cell Count 4.42 M/mm3 (3.80-5.20); White Blood Cell Count 9.74 K/mm3 (4.00-11.30)
--- NOTE | 2024-01-14 05:22 | NUR ---
SHIFT SUMMARY NOC. PT POD 2 FOR LEFT KNEE I&D AFTER HEMATOMA. PT MEDICATED FOR PAIN WITH REPORTED RELIEF. PT VOIDING URINE AND TOLERATING PO INTAKE. WOUND VAC DRESSING COMPRESSED AND TUBING FREE OF KINKS. PT USING CPAP WITH O2 BLEED IN. POLAR PACK IN PLACE OVER LEFT KNEE, BRUISING STILL PRESENT IN LLE AND SCATTERED BUE. PT A/O X4. BED IN LOWEST POSITION, CALL LIGHT IN REACH.
[2024-01-14 05:40] LABS: Albumin, Blood 2.4 g/dL (3.4-5.0); Albumin/Globulin Ratio 0.7 (0.8-1.8); Bilirubin, Total 0.4 mg/dL (0.1-1.0); Bun/Creatinine Ratio 26.7 (12.0-20.0); Calcium, Blood 8.1 mg/dL (8.5-10.1); Creatinine, Blood 1.16 mg/dL (0.40-1.00); Globulin, Blood 3.5 g/dL (2.2-4.0); Potassium, Blood 3.7 mmol/L (3.5-5.5); Total Protein, Blood 5.9 g/dL (6.4-8.2)
[2024-01-14 07:05] VITALS: BP 130/59
[2024-01-14] MEDS ORDERED: Polyethylene Glycol 3350 17 gm PO PRN (10:20)
[2024-01-14] MEDS ORDERED: NS KCl 20mEq 1,000 ML IV SCH (10:30)
[2024-01-14] MEDS ORDERED: Psyllium 1 EA Pack PO SCH (11:00)
[2024-01-14 15:23] VITALS: BP 107/69
--- NOTE | 2024-01-14 18:05 | NUR ---
SUMMARY: PT IS POD2 L KNEE I&D.A/O, VSS. PT DOING WELL WITH THERAPY AND UP TO BATHROOM FOR VOIDS, SBA FOR HELP WITH LINES. IV ANTIBIOTICS INFUSED, PT HAS MINIMAL PAIN, MEDICATED X1. WOUND VAC WNL, THERE CONTINUES TO BE SWELLING, REDNESS TO L KNEE SOUROUNDING INCISION. NO ACUTE SAFETY CONCERN, PT USES CALL LIGHT AND MAKES NEEDS KNOWN. PLAN IS HOME WITH HH.
[2024-01-14 18:24] LABS: Vancomycin, Trough 19.2 ug/mL (5.0-10.0)
[2024-01-14] MEDS ORDERED: Vancomycin HCL 1,250 MG in NS 250 ML IV SCH (19:00)
[2024-01-14 20:07] VITALS: BP 98/53
[2024-01-15 04:43] VITALS: BP 117/64
--- NOTE | 2024-01-15 05:36 | NUR ---
SHIFT SUMMARY GIANNA WAS ALERT AND FULLY ORIENTED ON ASSESMENT. PT DENYING NEED FOR PAIN MEDS FOR THE MOST PART. WOUND VAC TO KNEE COMPRESSED NO DRAINAGE AT ALL COLLECTED. PT ON HOME PAP DEVICE SATTING 95% NO ACUTE EVENTS TONIGHT. PT AMBULATING WELL W/ 1 ASSIST. PT SLEEPING AT THIS TIME.
[2024-01-15 06:34] LABS: BASOPHILS ABSOLUTE AUTO 0.03 K/mm3 (0.00-0.23); BASOPHILS PERCENT AUTO 0 % (0-2); EOSINOPHILS ABSOLUTE AUTO 0.35 K/mm3 (0.00-0.68); EOSINOPHILS PERCENT AUTO 4 % (0-6); Hematocrit 39.5 % (33.0-51.0); Hemoglobin 12.4 g/dL (11.5-16.0); IMMATURE GRAN ABSOLUTE AUTO 0.04 K/mm3 (0.00-0.10); IMMATURE GRAN PERCENT AUTO 1 % (0-1); LYMPHOCYTES PERCENT AUTO 8 % (21-46); MONOCYTES ABSOLUTE AUTO 0.65 K/mm3 (0.16-1.47); MONOCYTES PERCENT AUTO 8 % (4-13); Mean Corpuscular HGB 27.9 pg (26.0-34.0); Mean Corpuscular HGB Conc 31.4 g/dL (31.5-36.5); Mean Corpuscular Volume 89 fL (80-100); Mean Platelet Volume 9.8 fL (9.1-12.4); NEUTROPHILS ABSOLUTE AUTO 6.33 K/mm3 (1.96-9.15); NEUTROPHILS PERCENT AUTO 79 % (41-73); Platelet Count 221 K/mm3 (150-400); RDW Standard Deviation 48.6 fL (35.1-46.3); Red Blood Cell Count 4.44 M/mm3 (3.80-5.20)
[2024-01-15 07:00] LABS: Albumin, Blood 2.3 g/dL (3.4-5.0); Albumin/Globulin Ratio 0.7 (0.8-1.8); Bilirubin, Total 0.4 mg/dL (0.1-1.0); Bun/Creatinine Ratio 26.4 (12.0-20.0); Calcium, Blood 8.3 mg/dL (8.5-10.1); Creatinine, Blood 0.91 mg/dL (0.40-1.00); Globulin, Blood 3.5 g/dL (2.2-4.0); Magnesium, Blood 1.7 mg/dL (1.6-2.4); Phosphorus, Blood 2.9 mg/dL (2.5-4.9); Potassium, Blood 4.1 mmol/L (3.5-5.5); Total Protein, Blood 5.8 g/dL (6.4-8.2)
[2024-01-15 07:26] VITALS: BP 143/69
[2024-01-15] MEDS ORDERED: Lactobacil 2-S.Thermo-Bifido 1 1 Cap PO SCH (10:30)
[2024-01-15] MEDS ORDERED: Docusate Sodium 100 MG Cap PO SCH ×2 (10:30→11:00)
[2024-01-15] MEDS ORDERED: Polyethylene Glycol 3350 17 gm PO SCH (10:30)
[2024-01-15] MEDS ORDERED: Lisinopril 5 MG Tab PO SCH (10:36)
[2024-01-15] MEDS ORDERED: Magnesium Oxide 400 MG Tab PO SCH (11:00)
[2024-01-15 15:00] VITALS: BP 115/55
--- NOTE | 2024-01-15 16:02 | NUR ---
SHIFT SUMMARY PT IS POD#3 FROM I&D OF L KNEE. WOUND VAC DRESSING CHANGED. NO OUTPUT FROM INCISION. PT HAS DENIED PAIN. PT IS A 1 ASSIST WHEN OOB. PT HAVING BOWEL MOVEMENTS. PT USES HER CALL LIGHT APPROPRIATELY.
--- NOTE | 2024-01-15 16:03 | NUR ---
WOUND VAC DRESSING CHANGED WOUND VAC DRESSING REMOVED. DRESSING REPLACED DONE BY DR. GORMAN HAD APPLIED IT. ADAPTIVE DRESSING, BLACK FOAM APPLIED. THEN WOUND VAC OVER THAT. WOUND IS SUTURED CLOSED. LENGTH OF INCISION SITE IS 12CM.
--- NOTE | 2024-01-15 17:43 | NUR ---
ASSUMED CARE OF PT FROM MAGALI WHITEHEAD AT 1630. PT CURRENTLY RESTING COMFORTABLY IN RECLINER W/ WOUND VAC IN PLACE, CALL LIGHT IN REACH.
[2024-01-15 18:37] VITALS: BP 103/51
[2024-01-15 19:51] VITALS: BP 141/74
--- NOTE | 2024-01-16 05:06 | NUR ---
SHIFT SUMMARY PT STATUS POST LEFT I&D, WOUND VAC IN PLACE. SURGICAL SITE WNL. INTERMITTENT PAIN MANAGED WITH MEDS PER EMAR. PLAN OF CARE REMAINS UNCHANGED. BED IN LOWEST POSITION, CALL LIGHT WITHIN REACH.
[2024-01-16 05:16] VITALS: BP 129/62
[2024-01-16 05:54] LABS: Bun/Creatinine Ratio 19.9 (12.0-20.0); Calcium, Blood 8.5 mg/dL (8.5-10.1); Creatinine, Blood 0.9 mg/dL (0.40-1.00); Potassium, Blood 4.5 mmol/L (3.5-5.5)
[2024-01-16 07:36] VITALS: BP 129/61
[2024-01-16 18:13] VITALS: BP 121/53
--- NOTE | 2024-01-16 19:51 | NUR ---
SHIFT SUMMARY PT IS POD#4 FROM L KNEE I&D. PAIN MANAGED WITH TYLENOL THIS SHIFT. PT IS A 1 ASSIST WITH GAIT BELT AND WALKER. ABX TRANSITIONED FROM IV TO PO. POSSIBLE DISCHARGE HOME WITH HOME HEALTH TOMORROW. PT PLEASANT AND USES HER CALL LIGHT APPROPRIATELY. BEDSIDE REPORT GIVEN TO INÉS WHITEHEAD.
[2024-01-16 20:35] VITALS: BP 123/54
[2024-01-16] MEDS ORDERED: Cefpodoxime Proxetil 200 MG Tab PO SCH (21:00)
[2024-01-16] MEDS ORDERED: Linezolid 600 MG Tab PO SCH (21:00)
[2024-01-17 05:17] VITALS: BP 118/57
[2024-01-17 05:26] LABS: BASOPHILS ABSOLUTE AUTO 0.02 K/mm3 (0.00-0.23); BASOPHILS PERCENT AUTO 0 % (0-2); EOSINOPHILS ABSOLUTE AUTO 0.44 K/mm3 (0.00-0.68); EOSINOPHILS PERCENT AUTO 5 % (0-6); Hematocrit 37.5 % (33.0-51.0); IMMATURE GRAN ABSOLUTE AUTO 0.03 K/mm3 (0.00-0.10); IMMATURE GRAN PERCENT AUTO 0 % (0-1); LYMPHOCYTES ABSOLUTE AUTO 0.67 K/mm3 (0.84-5.20); LYMPHOCYTES PERCENT AUTO 7 % (21-46); MONOCYTES ABSOLUTE AUTO 0.52 K/mm3 (0.16-1.47); MONOCYTES PERCENT AUTO 6 % (4-13); Mean Corpuscular HGB 28.5 pg (26.0-34.0); Mean Corpuscular Volume 89 fL (80-100); Mean Platelet Volume 9.5 fL (9.1-12.4); NEUTROPHILS ABSOLUTE AUTO 7.68 K/mm3 (1.96-9.15); NEUTROPHILS PERCENT AUTO 82 % (41-73); Platelet Count 205 K/mm3 (150-400); RDW Coefficient Variation 14.7 % (11.7-14.2); RDW Standard Deviation 47.8 fL (35.1-46.3); Red Blood Cell Count 4.21 M/mm3 (3.80-5.20); White Blood Cell Count 9.36 K/mm3 (4.00-11.30)
[2024-01-17 05:59] LABS: C-REACTIVE PROTEIN, EXT RANGE 8.42 mg/dL (0.000-0.300)
[2024-01-17 06:01] LABS: Bun/Creatinine Ratio 22.1 (12.0-20.0); Calcium, Blood 8.3 mg/dL (8.5-10.1); Creatinine, Blood 0.77 mg/dL (0.40-1.00); Potassium, Blood 4.5 mmol/L (3.5-5.5)
--- NOTE | 2024-01-17 07:25 | NUR ---
NOC SUMMARY- NO NEW ISSUES NOTED. PT WOUND VAC COMPRESSED. PT HAD NO PAIN ISSUES. PT UP TO VOID. PT SLEPT WITH CPAP THROUGH THE SHIFT. CALL LIGHT IN REACH.
[2024-01-17 07:59] VITALS: BP 136/78
[2024-01-17] MEDS ORDERED: Bumetanide 1 MG Tab PO SCH (09:00)
--- NOTE | 2024-01-17 09:29 | NUR ---
ASSUMPTION OF CARE THIS RN ASSUMED CARE AT APPROX 1915. PATIENT ALERT AND ORIENTED X4. COMMUNICATES NEEDS EFFECTIVELY. EXPRESSING DESIRE TO DC HOME TODAY. UP TO BSC AND CHAIR WITH SBA FWW, GB. WBAT TO LLE. DENIES PAIN AT THIS TIME. WOUND VAC TO L KNEE APPEARS WNL - NO DRAINAGE. MILD REDNESS, SWELLING TO L KNEE. MD GORMAN CONTACTED RN KALI HERCULES TO REMOVE WOUND VAC AND INITIATE WOUND CARE ORDERS. VSS. ON 2L VIA NC, SATs >92%. STATES THAT SHE NORMALLY DOES NOT WEAR OXYGEN DURING THE DAY, ATTEMPTING TO TITRATE OXYGEN USE. SATs 88% ON ROOM AIR. PATIENT IS CURRENTLY SITTING IN CHAIR. DENIES NEEDS AT THIS TIME. CALL LIGHT IN REACH.
--- NOTE | 2024-01-17 12:42 | NUR ---
WOUND VAC REMOVED AND DRESSING APPLIED PER MD ORDER. EDUCATION PROVIDED REGARDING WOUND CARE. AT BEDSIDE RECEPTIVE TO EDUCATION
[2024-01-17] MEDS ORDERED: CEFP200 PO (13:45)
[2024-01-17] MEDS ORDERED: LINE600 PO (13:46)
[2024-01-17] MEDS ORDERED: VISBIOME 112.51 EACH PO (13:48)
--- NOTE | 2024-01-17 14:29 | NUR ---
DISCHARGE NOTE DISCHARGE HOME WITH HOME HEALTH ORDERED BY MD. CLEARED BY PHYSICAL, OCCUPATIONAL THERAPY. VSS. REMAINS ALERT AND ORIENTED X4. RECEPTIVE TO DISCHARGE EDUCATION - STATES UNDERSTANDING. PRESENT DURING EDUCATION. MANAGING PAIN WITH PRESCRIBED MEDICATION. POLAR PACK WITH PATIENT. WOUND VAC TO L KNEE REMOVED - DRESSING APPLIED PER MD ORDER. PERSONAL BELONGINGS TRANSFERRED WITH PATIENT. PATIENT TRANSFERRED FROM UNIT TO PERSONAL VEHICLE VIA WHEELCHAIR AT APPROX 0230.
== END 2024-01-17 14:33 | disposition home health service (06) | DRG 982 ==
LOC: ER 11:13 → SURS 17:19
PROVIDERS: Emergency Medicine; Hospitalist; Orthopaedic Surgery Sports Medicine; ADMIT Family Medicine
PROC: 0LBR0ZZ Excision of Left Knee Tendon, Open Approach (ICD-10-PCS; principal; 2024-01-12 14:00)
DX: L03.116 Cellulitis of left lower limb (principal); I48.20 Chronic atrial fibrillation, unspecified; I96 Gangrene, not elsewhere classified; I50.22 Chronic systolic (congestive) heart failure; N17.9 Acute kidney failure, unspecified; Z66 Do not resuscitate; S80.02XA Contusion of left knee, initial encounter; J44.9 Chronic obstructive pulmonary disease, unspecified; R73.03 Prediabetes; Z99.81 Dependence on supplemental oxygen; G47.33 Obstructive sleep apnea (adult) (pediatric); H54.61 Unqualified visual loss, right eye, normal vision left eye; M54.9 Dorsalgia, unspecified; G89.29 Other chronic pain; H40.9 Unspecified glaucoma; Z88.5 Allergy status to narcotic agent; Z88.8 Allergy status to other drugs, medicaments and biological substances; Z79.899 Other long term (current) drug therapy; Z79.01 Long term (current) use of anticoagulants; Z79.82 Long term (current) use of aspirin; Z85.118 Personal history of other malignant neoplasm of bronchus and lung; Z96.649 Presence of unspecified artificial hip joint; Z87.891 Personal history of nicotine dependence; W19.XXXA Unspecified fall, initial encounter
CPT/HCPCS: 36415; 73701; 80048; 80053; 80202; 82947; 83036; 83735; 84100; 85025; 85651; 86140; 87070; 87075; 87205; 94640; 94664; 94762; 96365-59; 97110; 97116; 97161; 97165; 97530; 97535; 99285-25; A9270; J0690; J0696; J1100; J1171; J1650; J1885; J2250; J2405; J2704; J3010; J3370; J3480; J7050; J7120; Q9967

== ENCOUNTER 2024-05-27 11:07 | Inpatient (IN) | payer OTHER ==
[2024-05-27] VITALS (29 sets, daily range): BP systolic 53–145; BP diastolic 32–127
[~2024-05-27] VITALS: Ht 167.6 cm; Wt 110.8 kg
[~2024-05-27 11:07] MED LIST changes: +CEFP200 PO; +LINE600 PO; +LISINOPRIL2.5 MG PO; +VISBIOME 112.51 EACH PO
[2024-05-27] MEDS ORDERED: Ipratropium/Albuterol SulF 2.5-0.5MG/3 ML Amp INH PRN (11:50)
[2024-05-27] MEDS ORDERED: Dexamethasone Sod Phos 10 MG/ML 1ML VIAL IV ONE (11:50)
[2024-05-27 11:52] LABS: Base Excess Venous 1.7 mmol/L; Bicarbonate Venous 24.7 mmol/L (24.0-30.0); Hematocrit 43.2 % (33.0-51.0); Hemoglobin 14.5 g/dL (11.5-16.0); Mean Corpuscular HGB 27.3 pg (26.0-34.0); Mean Corpuscular HGB Conc 33.6 g/dL (31.5-36.5); Mean Corpuscular Volume 81 fL (80-100); Mean Platelet Volume 10.1 fL (9.1-12.4); NRBC ABSOLUTE 0.02 K/mm3 (0.00-0.02); PCO2 Venous 50.1 mmHg (38-42); Platelet Count 242 K/mm3 (150-400); RDW Coefficient Variation 16.1 % (11.7-14.2); RDW Standard Deviation 47.4 fL (35.1-46.3); Red Blood Cell Count 5.31 M/mm3 (3.80-5.20); White Blood Cell Count 41.51 K/mm3 (4.00-11.30); pH Blood Venous 7.35 (7.34-7.37)
[2024-05-27 12:10] LABS: BASOPHILS PERCENT MAN 0 % (0-2); EOSINOPHILS PERCENT MAN 0 % (0-6); LYMPHOCYTES ABSOLUTE MAN 0.41 K/mm3 (0.84-5.20); LYMPHOCYTES PERCENT MAN 1 % (21-46); MONOCYTES ABSOLUTE MAN 0.41 K/mm3 (0.16-1.47); MONOCYTES PERCENT MAN 1 % (4-13); NEUTROPHILS ABSOLUTE MAN 40.67 K/mm3 (1.96-9.15); SEG NEUTROPHILS PERCENT MAN 98 % (41-73); TOTAL CELLS COUNTED 100
[2024-05-27 12:49] LABS: Albumin, Blood 1.8 g/dL (3.4-5.0); Albumin/Globulin Ratio 0.3 (0.8-1.8); Bilirubin, Total 0.8 mg/dL (0.1-1.0); Bun/Creatinine Ratio 32.5 (12.0-20.0); Calcium, Blood 8.7 mg/dL (8.5-10.1); Creatinine, Blood 1.14 mg/dL (0.40-1.00); Globulin, Blood 5.3 g/dL (2.2-4.0); Potassium, Blood 3.6 mmol/L (3.5-5.5); Total Protein, Blood 7.1 g/dL (6.4-8.2)
[2024-05-27] MEDS ORDERED: Cefepime HCl 2,000 MG in NS 100 ML IV ONE (13:00)
[2024-05-27] MEDS ORDERED: NS 1,000 ML IV SCH ×2 (13:00→14:00)
[2024-05-27] MEDS ORDERED: Vancomycin HCL 1,000 MG in NS 250 ML IV ONE (13:00)
[2024-05-27] MEDS ORDERED: Ondansetron 4 MG TAB PO PRN (13:40)
[2024-05-27] MEDS ORDERED: FLU VACC TS2024-25(6MOS UP)/PF 45 MCG/0.5 ML SYRINGE IM ONE (13:40)
[2024-05-27] MEDS ORDERED: VERA240ER PO (14:34)
[2024-05-27] MEDS ORDERED: LOSARTAN-HCTZ1 EACH PO (14:41)
[2024-05-27] MEDS ORDERED: TORSE20 PO (14:45)
[2024-05-27] MEDS ORDERED: Azithromycin 500 MG in NS 250 ML IV SCH (15:33)
[2024-05-27] MEDS ORDERED: MethylPREDNISolone Sod Succ 40 MG VIAL IV SCH (16:00)
[2024-05-27] MEDS ORDERED: Ipratropium/Albuterol SulF 2.5-0.5MG/3 ML Amp INH SCH (16:05)
[2024-05-27 16:06] LABS: Magnesium, Blood 1.7 mg/dL (1.6-2.4); Phosphorus, Blood 2.8 mg/dL (2.5-4.9)
[2024-05-27] MEDS ORDERED: LORazepam 2 MG/ML 1ML Injection ONE (16:17)
[2024-05-27] MEDS ORDERED: LORazepam 2 MG/ML 1ML Injection IV PRN (16:25)
[2024-05-27] MEDS ORDERED: dexmedeTOMIDine 100 ML IV SCH (16:55)
[2024-05-27 17:10] LABS: PCO2 Arterial 52.6 mmHg (35-45); PO2 Arterial 70.4 mmHg (80-100)
[2024-05-27 17:12] LABS: pH Blood Arterial 7.28 (7.35-7.45)
--- NOTE | 2024-05-27 17:58 | NUR ---
ADMISSION/TRANSFER PT ARRIVED TO PCU 18 AT APPROX 1500. PT ALERT AND ORIENTED X4 ON ARRIVAL, ABLE TO FOLLOW COMMANDS AND MAKE NEEDS KNOWN. STRENGTH WEAK, EQUAL BILATERALLY. BP STABLE. HR PACED 60'S. PT ARRIVED ON 15 NRB SPO2 86-88%. RESPIRATIONS SHALLOW, LABORED, 36-40. LUNG SOUNDS WITH WHEEZES THROUGHOUT. ABD DISTENDED, NON TENDER, BOWEL SONDS +. +3 EDEMA NOTED IN BLE. PULSES PALPABLE. NA 118, CALL PLACED TO MD REGARDING CRITICAL LOW VALUE, ORDERS RECEIVED FOR NS GTT @50ML/HR. AT BEDSIDE, ABLE TO REVIEW PT MED LIST AND HISTORY. BLADDER SCAN DONE, >350. NAVARRO CATHETER PLACED, PATENT AND DRAINING YELLOW URINE TO GRAVITY. CALL PLACED TO RT BY THIS RN REGARDING PT RESP STATUS AT APPROX 1545. PT PLACED ON BIPAP 16/8 75%. RESP 36-40. PT UNABLE TO TOLERATE BIPAP PRESSURE, CALL PLACED TO MD, ORDERS RECEIVED FOR PRN ATIVAN. 1630: PT BECOMING INCREASINGLY RESTLESS, ATTEMPTING TO CLIMB OUT OF BED AND PULL AT LINES. WHEN ASKED LOCATION PT [place]PONDS [place] [place] UNABLE TO RECALL MONTH/YEAR. CALL PLACED TO MD, ORDERS RECEIVED FOR ABG AND REPEAT BMP 1700: PT CONTINUING TO PULL AT LINES/CLIMBING AT BED. CALL PLACED TO MD. ORDERS RECEIVED FOR ICU XFER AND PRECEDEX INFUSION. 1730: PT TRANSFERRED TO ICU 7. PT NOTIFIED ON XFER. BEDSIDE REPORT GIVEN TO MILAGRO WHITEHEAD. ALL BELONGINGS WITH PT
[2024-05-27] MEDS ORDERED: CefTRIAXone Sodium 1,000 MG in NS 100 ML IV SCH (18:00)
[2024-05-27 18:07] LABS: Bun/Creatinine Ratio 35.6 (12.0-20.0); Calcium, Blood 8.3 mg/dL (8.5-10.1); Creatinine, Blood 1.01 mg/dL (0.40-1.00); Potassium, Blood 4.1 mmol/L (3.5-5.5)
[2024-05-27] MEDS ORDERED: Sodium Chloride 3% 500 ML IV SCH (18:25)
--- NOTE | 2024-05-27 18:25 | NUR ---
PT TRANSFERED TO ICU 7 FROM PCU. PT ARRIVES ON BIPAP / FIO2 70%. RESTLESS. ABLE TO STATE WHERE SHE IS, NAME, AND . WILL PULL AT BIPAP AND IS AGREEABLE TO LEAVE IT ALONE BUT INSTANTLY REACHES BACK UP FOR IT. NEEDS CONSTANT REMINDING TO LEAVE IT AND OTHER LINES ALONE. STARTED ON PRECEDEX. DR. SLAUGHTER NOTIFIED OF NA LEVEL. NEW ORDERS FOR 3% SALINE. OK TO RUN THROUGH PERIPHERAL IV. UPDATED.
--- NOTE | 2024-05-27 20:42 | NUR ---
PROVIDER UPDATED DR. DE LEON CONTACTED FOR HYPOTENTION, MAPS IN THE 40/50S. LEVOPHED INITIATED PER ORDER.
[2024-05-27] MEDS ORDERED: Apixaban 5 MG Tab PO SCH (21:00)
[2024-05-27 21:02] LABS: Adenovirus Not Detected (NOT DETECT); Bordetella pertussis Not Detected (NOT DETECT); Chlamydophila pneumoniae Not Detected (NOT DETECT); Coronavirus 229E Not Detected (NOT DETECT); Coronavirus HKU1 Not Detected (NOT DETECT); Coronavirus NL63 Not Detected (NOT DETECT); Coronavirus OC43 Not Detected (NOT DETECT); Human Metapneumovirus Not Detected (NOT DETECT); Human Rhinovirus/Enterovirus Not Detected (NOT DETECT); Influenza A/2009-H1 Detected (NOT DETECT); Influenza A/H1 Not Detected (NOT DETECT); Influenza A/H3 Not Detected (NOT DETECT); Influenza B Not Detected (NOT DETECT); Parainfluenza Virus 1 Not Detected (NOT DETECT); Parainfluenza Virus 2 Not Detected (NOT DETECT); Parainfluenza Virus 3 Not Detected (NOT DETECT); Parainfluenza Virus 4 Not Detected (NOT DETECT); Respiratory Syncytial Virus Not Detected (NOT DETECT); SARS-Cov-2 (COVID-19), BioFire Not Detected (NOT DETECT)
[2024-05-27 21:03] LABS: Mycoplasma pneumoniae Not Detected (NOT DETECT)
[2024-05-27] MEDS ORDERED: Piperacillin/Tazobactam Sod 3.375 GM in NS 100 ML IV ONE (21:05)
[2024-05-27] MEDS ORDERED: Vancomycin HCL 2,000 MG in NS 500 ML IV ONE (21:05)
--- NOTE | 2024-05-27 22:05 | NUR ---
ASSUMPTION OF CARE @1900 PT RESTING ON BED, STAFF AT BEDSIDE FOR POWERGLIDE PLACEMENT. PT RESTLESS ON BED AND PULLING AT LINES/ BIPAP MASK. PRECEDEX DRIP RUNNING AT 1.4MCG/KG/HR. WHEEZES T/O LUNGS, BP ON BIPAP 16/8 75%. PT ON CONTINUOUS DIRECTOR FURNITURE, PACED RATE OF 70S. BP LABILE W/ INTERMITTENT HYPOTENSIVE READS. PT HAS NAVARRO CATH IN PLACE, SMALL AMOUNT OF CONCENTRATED URINE DRAINING TO GRAVITY. PT REQUIRING FREQUENT REDIRECTION. CALL LIGHT PROVIDED.
[2024-05-27] MEDS ORDERED: Furosemide 10 MG/ML 4ML Vial IV ONE (22:35)
[2024-05-27 23:28] LABS: Base Excess Venous -1.9 mmol/L; Bicarbonate Venous 21.9 mmol/L (24.0-30.0); PCO2 Venous 56.6 mmHg (38-42); pH Blood Venous 7.26 (7.34-7.37)
[2024-05-28] VITALS (60 sets, daily range): BP systolic 91–120; BP diastolic 55–76
[2024-05-28] MEDS ORDERED: Heparin Sodium,Porcine 5,000 UNIT/0.5 ML SDV SC SCH
[2024-05-28 02:02] LABS: Hematocrit 38.9 % (33.0-51.0); Hemoglobin 12.9 g/dL (11.5-16.0); Mean Corpuscular HGB 27.6 pg (26.0-34.0); Mean Corpuscular HGB Conc 33.2 g/dL (31.5-36.5); Mean Corpuscular Volume 83 fL (80-100); Mean Platelet Volume 9.7 fL (9.1-12.4); Platelet Count 200 K/mm3 (150-400); RDW Coefficient Variation 16.2 % (11.7-14.2); RDW Standard Deviation 49.1 fL (35.1-46.3); Red Blood Cell Count 4.68 M/mm3 (3.80-5.20); White Blood Cell Count 49.03 K/mm3 (4.00-11.30)
[2024-05-28 02:20] LABS: Albumin, Blood 1.6 g/dL (3.4-5.0); Albumin/Globulin Ratio 0.3 (0.8-1.8); Bilirubin, Total 0.8 mg/dL (0.1-1.0); Bun/Creatinine Ratio 33.3 (12.0-20.0); Calcium, Blood 8.3 mg/dL (8.5-10.1); Creatinine, Blood 1.14 mg/dL (0.40-1.00); Globulin, Blood 4.6 g/dL (2.2-4.0); Magnesium, Blood 1.9 mg/dL (1.6-2.4); Potassium, Blood 4.6 mmol/L (3.5-5.5); Total Protein, Blood 6.2 g/dL (6.4-8.2)
[2024-05-28 02:27] LABS: BAND PERCENT MAN 9 % (0-8); BASOPHILS PERCENT MAN 0 % (0-2); EOSINOPHILS PERCENT MAN 0 % (0-6); LYMPHOCYTES ABSOLUTE MAN 0.98 K/mm3 (0.84-5.20); LYMPHOCYTES PERCENT MAN 2 % (21-46); METAMYELOCYTE ABSOLUTE MAN 0.49 K/mm3 (0.00-0.00); METAMYELOCYTE PERCENT MAN 1 % (0-0); MONOCYTES ABSOLUTE MAN 1.47 K/mm3 (0.16-1.47); MONOCYTES PERCENT MAN 3 % (4-13); NEUTROPHILS ABSOLUTE MAN 46.08 K/mm3 (1.96-9.15); SEG NEUTROPHILS PERCENT MAN 85 % (41-73); TOTAL CELLS COUNTED 100
[2024-05-28 04:16] LABS: Base Excess Venous 0 mmol/L; Bicarbonate Venous 23.1 mmol/L (24.0-30.0); PCO2 Venous 56.6 mmHg (38-42); pH Blood Venous 7.28 (7.34-7.37)
--- NOTE | 2024-05-28 05:33 | NUR ---
NOC SHIFT SUMMARY PT REMAINS ON PRECEDEX DRIP, RUNNING AT 0.5MCG/KG/HR. PT RESPONDS TO VERBAL STIMULI, ORIENTED TO SELF. LEVOPHED AT 3MCG/MIN. NS AT 50ML/HR. RHONCHI T/O LUNGS WITH WHEEZES. PT HAS WEAK COUGH THAT SOUNDS CONGESTED. ON BIPAP 20/12 75%FIO2. PT RR 20-30S. PACED RHYTHM ON MONITOR, RATE OF 60S. LEVO TITRATED TO MAINTAIN MAP>65. PT AFEBRILE. NAVARRO CATH DRAINING CONCENTRATED URINE TO GRAVITY- PATENT. NO BM THIS SHIFT. PT TURNED FREQUENTLY SHE COULD TOLERATE. CALL LIGHT W/IN REACH. PLAN OF CARE ONGOING
[2024-05-28] MEDS ORDERED: Piperacillin/Tazobactam Sod 3.375 GM in NS 100 ML IV SCH (06:00)
[2024-05-28] MEDS ORDERED: Enoxaparin 40 MG/0.4 ML SYR SC SCH (09:00)
[2024-05-28 10:12] LABS: Base Excess Venous -1.9 mmol/L; PCO2 Venous 39.1 mmHg (38-42); pH Blood Venous 7.38 (7.34-7.37)
[2024-05-28 10:27] LABS: Bun/Creatinine Ratio 35.1 (12.0-20.0); Calcium, Blood 8.1 mg/dL (8.5-10.1); Creatinine, Blood 1.11 mg/dL (0.40-1.00); Potassium, Blood 4.7 mmol/L (3.5-5.5)
--- NOTE | 2024-05-28 12:11 | NUR ---
REASSESSMENT PT REMAINS ON THE BIPAP. ORIENTED TO SELF, CONFUSED TO LOCATION, BUT EASILY REORIENTED. SHE TOLERATED A 5MINUTE BREAK ON 15L HI FLOW NC WHILE ORAL CARE WAS DONE. WHILE OFF THE BIPAP, PT WAS COUGHING A LOT AND BROUGHT UP SPUTUM, BUT SWALLOWED IT. LUNGS HAVE SOME FAINT WHEEZES. VENTRICULAR PACED WITH RATE IN THE 60S. NAVARRO DRAINING YELLOW URINE. DR. GAMEZ UPDATED WITH CURRENT LABS.PT'S AT BEDSIDE AND UPDATED BY NURSING STAFF AND DR. MOROCHO
[2024-05-28] MEDS ORDERED: Hydrocortisone Sod Succinate 250 MG Vial IV SCH (14:00)
[2024-05-28] MEDS ORDERED: Enoxaparin 120 MG/0.8 ML SYR SC SCH (14:02)
[2024-05-28] MEDS ORDERED: Oseltamivir Phosphate 75 MG Cap PO ONE (14:17)
--- NOTE | 2024-05-28 17:07 | NUR ---
SHIFT SUMMARY PT REMAINS DEPENDENT ON THE BIPAP. SHE HAD ABOUT A 10 MINUTE BREAK THIS AFTERNOON WHILE ON 12L HI FLOW NC. ASSISTED PT WITH FLUTTER VALVE DURING BREAK AND PT WAS ABLE TO COUGH UP MORE SPUTUM, BUT SWALLOWED IT INSTEAD OF SPITTING IT OUT. PT WAS CONFUSED TO PLACE AND DATE AGAIN, BUT RECOGNIZED HER AND FOLLOWED DIRECTIONS. V-PACED, RATE OF 60. PRECEDEX CUT DOWN TO 0.2 MCG/KG/HR THIS AFTERNOON AND SHE HAS REMAINED COMPLIANT WITH THE BIPAP. VOIDING USING THE URINAL. BOWEL TONES HYPOACTIVE. SMALL SMEAR CLEANED FROM EHR BOTTOM DURING HER BATH. PT'S SPENT SEVERAL HOURS AT THE BEDSIDE AND WAS UPDATED THROUGHOUT THE SHIFT.
[2024-05-28 18:36] LABS: Base Excess Venous -0.5 mmol/L; Bicarbonate Venous 23.3 mmol/L (24.0-30.0); PCO2 Venous 50.6 mmHg (38-42); pH Blood Venous 7.31 (7.34-7.37)
[2024-05-28 18:59] LABS: Calcium, Blood 7.9 mg/dL (8.5-10.1); Creatinine, Blood 1.1 mg/dL (0.40-1.00); Potassium, Blood 4.5 mmol/L (3.5-5.5)
[2024-05-28 19:29] LABS: Sodium, Urine, Random <5 mmol/L (20-110)
[2024-05-28] MEDS ORDERED: Vancomycin HCL 1,750 MG in NS 500 ML IV SCH (21:00)
[2024-05-28] MEDS ORDERED: Oseltamvir Phosphate 30 MG Cap PO SCH (21:00)
[2024-05-28 22:04] LABS: Base Excess Venous -0.6 mmol/L; Bicarbonate Venous 22.9 mmol/L (24.0-30.0); PCO2 Venous 54.6 mmHg (38-42); pH Blood Venous 7.29 (7.34-7.37)
--- NOTE | 2024-05-28 22:22 | NUR ---
PT UPDATE PT DESATURATED TO 70% AND SUSTAINED, PT ENCOURAGED TO COUGH, SAT UP IN BED AND NO IMPROVEMENT. DR. DE LEON CALLED AND UPDATED ON PT STATUS. BIPAP SETTINGS INCREASED BY RT. PT SATS SLOWLY IMPROVE TO 94% W/ INCREASED SETTINGS. AWAITING PROVIDER ORDERS.
[2024-05-28] MEDS ORDERED: Furosemide 10 MG/ML 4ML Vial ONE (22:30)
[2024-05-28] MEDS ORDERED: Furosemide 10 MG/ML 4ML Vial IV ONE (22:35)
--- NOTE | 2024-05-28 23:37 | NUR ---
CODE STATUS CHANGED PER CONSULT W/ DR. CABRERA AND NURSING CLOTHING DESIGNER ARNEL OAKES.
[2024-05-29] VITALS (49 sets, daily range): BP systolic 94–137; BP diastolic 53–121
[2024-05-29] MEDS ORDERED: Lactated Ringer's 1,000 ML IV SCH (00:15)
[2024-05-29 04:35] LABS: Hematocrit 35.7 % (33.0-51.0); Hemoglobin 11.6 g/dL (11.5-16.0); Mean Corpuscular HGB 27.3 pg (26.0-34.0); Mean Corpuscular HGB Conc 32.5 g/dL (31.5-36.5); Mean Corpuscular Volume 84 fL (80-100); Mean Platelet Volume 10.6 fL (9.1-12.4); Platelet Count 199 K/mm3 (150-400); RDW Coefficient Variation 16.3 % (11.7-14.2); RDW Standard Deviation 50.1 fL (35.1-46.3); Red Blood Cell Count 4.25 M/mm3 (3.80-5.20); White Blood Cell Count 26.04 K/mm3 (4.00-11.30)
[2024-05-29 04:52] LABS: Calcium, Blood 8.1 mg/dL (8.5-10.1); Potassium, Blood 4.7 mmol/L (3.5-5.5)
[2024-05-29 05:07] LABS: BASOPHILS PERCENT MAN 0 % (0-2); EOSINOPHILS PERCENT MAN 0 % (0-6); LYMPHOCYTES ABSOLUTE MAN 0.26 K/mm3 (0.84-5.20); LYMPHOCYTES PERCENT MAN 1 % (21-46); MONOCYTES ABSOLUTE MAN 0.52 K/mm3 (0.16-1.47); MONOCYTES PERCENT MAN 2 % (4-13); NEUTROPHILS ABSOLUTE MAN 25.25 K/mm3 (1.96-9.15); SEG NEUTROPHILS PERCENT MAN 97 % (41-73); TOTAL CELLS COUNTED 100
--- NOTE | 2024-05-29 05:28 | NUR ---
NOC SHIFT SUMMARY PT HAD EPISODE OF DECREASED O2 SATS- DOWN TO 70S, FOR WHICH PROVIDER RICK/RASHAWN WERE CONSULTED. PT BIPAP SETTING ADJUSTED BY RT AND GIVEN DOSE OF LASIX. NS INFUSION DC'D D/T CONCERN FOR FLUID OVERLOAD. PT ROUSIBLE BY VOICE AND REMAINS ORIENTED TO SELF. PT REDIRECTIBLE AND FOLLOWING COMMANDS. PT LUNGS SOUND RHONCHI T/O. PT HAS VERY WEAK COUGH AND IS NOT ABLE TO CLEAR SPUTUM. PT AFEBRILE. NO BM THIS SHIFT. NAVARRO CATH DRAINING CONCENTRATED URINE TO GRAVITY. CALL LIGHT W/IN REACH. PLAN OF CARE ONGOING.
--- NOTE | 2024-05-29 09:32 | NUR ---
CARE ASSUMPTION DURING BEDSIDE SHIFT REPORT THE PT IS LYING IN BED WEARING THE BIPAP MASK W BIPAP SETTINGS OF 22/10 AND 80% FFIO2. PRECEDEX GTT INFUSING AT 0.4 MCG/KG/HR. PT W RASS OF -1. PT AWAKENING WHEN THIS RN APPROACHED THE BED. PT IS ORIENTED TO SELF AND WHILE SHE DOES NOT KNOW WHY SHE IS HERE SHE DOES KNOW THAT SHE IS IN THE HOSPITAL. PT'S SPO2 STABLE >98% SO FIO2 TITRATED DOWN TO 55% BY RT. MONITOR SHOWING PACED RYTHYM IN THE 50'S. BP WNL AND STABLE.
[2024-05-29] MEDS ORDERED: Furosemide 10 MG/ML 4ML Vial IV ONE (12:05)
[2024-05-29] MEDS ORDERED: HYDROCORTISONE SOD SUCCINATE IV SCH (14:00)
[2024-05-29] MEDS ORDERED: NS IV SCH (14:00)
[2024-05-29 17:54] LABS: Albumin, Blood 1.4 g/dL (3.4-5.0); Albumin/Globulin Ratio 0.3 (0.8-1.8); Bilirubin, Total 0.6 mg/dL (0.1-1.0); Calcium, Blood 8.5 mg/dL (8.5-10.1); Globulin, Blood 4.3 g/dL (2.2-4.0); Total Protein, Blood 5.7 g/dL (6.4-8.2)
--- NOTE | 2024-05-29 18:13 | NUR ---
DAY SHIFT SUMMARY PT HAS BEEN ON THE BIPAP FOR MOST OF THE DAY BUT HAS BEEN ABLE TO TAKE BREAKS WEARING THE OXY MASK 10-15L FOR ORAL CARE AND GENERAL BREAKS. PT HAS HAD MULTIPLE MOMENTS WHERE HER SPO2 DROPS INTO THE LOW 80'S REQUIRING ADDITIONAL FIO2 TO REGAIN SPO2 >92%. PT DID DESATURATE THIS AFTERNOON WHICH SHE BECAME SYMPTOMATIC W HR IN THE 90'S AND INCREASED WOB, PT PLACED BACK ON BIPAP 22/10 W 80% FIO2. PT GIVEN IV LASIX THIS SHIFT PER DR. BRANCH, NAVARRO CATHETER PATENT AND DRAINING >1L CLEAR YELLOW URINE. NO BM THIS SHIFT. PT NPO THIS SHIFT. PT UP IN RECLINER FOR MOST OF THE DAY VIA CEILING LIFT. PT'S SPOUSE AT BEDSIDE FOR SEVERAL HOURS, PT'S UPDATED BY DR. BRANCH. WILL REPORT TO ONCOMING RN.
--- NOTE | 2024-05-29 19:00 | NUR ---
ASSUMPTION OF CARE PT RESTING ON BED, APPEARS TO BE CALM/SLEEPING. PT ROUSES TO VERBAL STIMULI AND FOLLOWS SIMPLE COMMANDS. PT WEAK IN ALL EXTREMITIES. PT ON BIPAP AND TOLERATING WELL. PRECEDEX INFUSING AT 0.4MCG/KG/HR. PT LUNGS COARSE T/O, DIM IN THE BASES. CURRENT BIPAP SETTINGS: 22/10 75%FIO2. PACED RHTHYM ON MONITOR, PT STABLE W/ MAP>65. PT AFEBRILE. DARK URINE DRAINING TO GRAVITY VIA NAVARRO CATH. CALL LIGHT W/ IN REACH. PLAN OF CARE ONGOING
[2024-05-29 20:45] LABS: Vancomycin, Trough 21.9 ug/mL (5.0-10.0)
[2024-05-29] MEDS ORDERED: Vancomycin HCL 1,500 MG in NS 250 ML IV SCH (21:00)
[2024-05-30] VITALS (33 sets, daily range): BP systolic 101–162; BP diastolic 57–92
[2024-05-30 04:44] LABS: BASOPHILS ABSOLUTE AUTO 0.06 K/mm3 (0.00-0.23); BASOPHILS PERCENT AUTO 0 % (0-2); EOSINOPHILS PERCENT AUTO 0 % (0-6); Hematocrit 37.7 % (33.0-51.0); Hemoglobin 11.8 g/dL (11.5-16.0); IMMATURE GRAN ABSOLUTE AUTO 0.65 K/mm3 (0.00-0.10); IMMATURE GRAN PERCENT AUTO 3 % (0-1); LYMPHOCYTES ABSOLUTE AUTO 0.55 K/mm3 (0.84-5.20); LYMPHOCYTES PERCENT AUTO 3 % (21-46); MONOCYTES ABSOLUTE AUTO 0.69 K/mm3 (0.16-1.47); MONOCYTES PERCENT AUTO 3 % (4-13); Mean Corpuscular HGB 26.6 pg (26.0-34.0); Mean Corpuscular HGB Conc 31.3 g/dL (31.5-36.5); Mean Corpuscular Volume 85 fL (80-100); Mean Platelet Volume 10.1 fL (9.1-12.4); NEUTROPHILS PERCENT AUTO 91 % (41-73); NRBC ABSOLUTE 0.02 K/mm3 (0.00-0.02); NRBC Auto 0.1 /100 WBC (0.0-0.2); Platelet Count 199 K/mm3 (150-400); RDW Coefficient Variation 16.5 % (11.7-14.2); RDW Standard Deviation 51.6 fL (35.1-46.3); Red Blood Cell Count 4.44 M/mm3 (3.80-5.20); White Blood Cell Count 21.65 K/mm3 (4.00-11.30)
[2024-05-30 05:08] LABS: Albumin, Blood 1.4 g/dL (3.4-5.0); Albumin/Globulin Ratio 0.3 (0.8-1.8); Bilirubin, Total 0.6 mg/dL (0.1-1.0); Bun/Creatinine Ratio 60.2 (12.0-20.0); Calcium, Blood 8.5 mg/dL (8.5-10.1); Creatinine, Blood 0.96 mg/dL (0.40-1.00); Globulin, Blood 4.2 g/dL (2.2-4.0); Potassium, Blood 4.1 mmol/L (3.5-5.5); Total Protein, Blood 5.6 g/dL (6.4-8.2)
--- NOTE | 2024-05-30 05:33 | NUR ---
NOC SHIFT SUMMARY NO ACUTE EVENTS OVERNIGHT. PT REMAINS ORIENTED TO SELF, COOPERATIVE W/ CARE. PRECEDEX INFUSING AT 0.4MCG/KG/HR. BIPAP SETTINGS 22/10 65%FIO2. PACED RHYTHM ON MAINTENANCE INSTRUCTOR, BP STABLE W/ MAP GREATER THAN 65. PT AFEBRILE. NO BM THIS SHIFT. URINE DRAINING TO GRAVITY VIA NAVARRO CATH. CALL LIGHT W/ IN REACH. PLAN OF CARE ONGOING
[2024-05-30] MEDS ORDERED: Furosemide 10 MG/ML 4ML Vial IV SCH (10:00)
--- NOTE | 2024-05-30 18:46 | NUR ---
DAY SHIFT SUMMARY PT HAS BEEN ALERT AND ORIENTED TO SELF AND PLACE THIS SHIFT. PT UP IN THE RECLINER ALL SHIFT WERAING AIRVO 50L AND 80% FIO2. PT/S BP WNL AND STABLE. PT STILL NPO PENDING ST EVAL. PRECEDEX GTT INFUSING AT 0.4 MCG/KG/HR. PT GIVEN LASIX X2 THIS SHIFT W NAVARRO CATHETER PRODUCING 3.2L CLEAR YELLOW URINE THIS SHIFT. WILL REPORT TO ONCOMING RN.
[2024-05-31] VITALS (48 sets, daily range): BP systolic 112–162; BP diastolic 58–94
--- NOTE | 2024-05-31 05:16 | NUR ---
SHIFT SUMMARY PT A/OX2, USES CALL LIGHT APPROPRIATLY. PRECEDEX INFUSING AT 0.4MCG/KG/H. PLACED ON BIPAP AT START OF SHIFT, TOLERATING WELL, SATS > 92%, SETTINGS 20/10 65%. HR STAYED 60-80'S THIS SHIFT, BP STABLE. GOOD UOP NOTED, NAVARRO DRAINING TO GRAVITY. NO BM THIS SHIFT. REMAINED NPO PENDING SPEECH EVAL. PT HAD AN UNEVENTFUL NIGHT. CONTINUE WITH PLAN OF CARE. CALL LIGHT IN REACH.
[2024-05-31 08:12] LABS: BASOPHILS ABSOLUTE AUTO 0.04 K/mm3 (0.00-0.23); BASOPHILS PERCENT AUTO 0 % (0-2); EOSINOPHILS PERCENT AUTO 0 % (0-6); Hematocrit 38.1 % (33.0-51.0); Hemoglobin 11.9 g/dL (11.5-16.0); IMMATURE GRAN ABSOLUTE AUTO 0.29 K/mm3 (0.00-0.10); IMMATURE GRAN PERCENT AUTO 2 % (0-1); LYMPHOCYTES ABSOLUTE AUTO 0.53 K/mm3 (0.84-5.20); LYMPHOCYTES PERCENT AUTO 4 % (21-46); MONOCYTES ABSOLUTE AUTO 0.71 K/mm3 (0.16-1.47); MONOCYTES PERCENT AUTO 5 % (4-13); Mean Corpuscular HGB 26.5 pg (26.0-34.0); Mean Corpuscular HGB Conc 31.2 g/dL (31.5-36.5); Mean Corpuscular Volume 85 fL (80-100); Mean Platelet Volume 10.1 fL (9.1-12.4); NEUTROPHILS ABSOLUTE AUTO 13.55 K/mm3 (1.96-9.15); NEUTROPHILS PERCENT AUTO 90 % (41-73); Platelet Count 195 K/mm3 (150-400); RDW Coefficient Variation 16.6 % (11.7-14.2); RDW Standard Deviation 51.6 fL (35.1-46.3); Red Blood Cell Count 4.49 M/mm3 (3.80-5.20); White Blood Cell Count 15.12 K/mm3 (4.00-11.30)
[2024-05-31 08:33] LABS: Albumin, Blood 1.4 g/dL (3.4-5.0); Albumin/Globulin Ratio 0.3 (0.8-1.8); Bilirubin, Total 1.1 mg/dL (0.1-1.0); Bun/Creatinine Ratio 56.8 (12.0-20.0); Calcium, Blood 8.3 mg/dL (8.5-10.1); Creatinine, Blood 0.79 mg/dL (0.40-1.00); Globulin, Blood 4.2 g/dL (2.2-4.0); Potassium, Blood 3.3 mmol/L (3.5-5.5); Total Protein, Blood 5.6 g/dL (6.4-8.2)
[2024-05-31] MEDS ORDERED: Potassium Chloride 20 MEQ/15 ML UDC PO ONE (08:55)
[2024-05-31] MEDS ORDERED: CefTRIAXone Sodium 2,000 MG in NS 100 ML IV SCH (09:00)
[2024-05-31] MEDS ORDERED: Potassium Chloride 40 MEQ in NS 250 ML IV ONE ×2 (10:10→20:05)
--- NOTE | 2024-05-31 10:50 | NUR ---
Pt. is awake, welcomes my visit, and takes my hand as she greets me. Spouse is at bedside. Facilitated a short life review and in the process a measure of rapport is established. Spouse verbalized that their power reactor supervisor has visited. Prayer was welcomed. Prayed with Pt. Pt. displayed evidence od a sense of peace. Spouse verbalized gratitude for the spiritual care visit.
[2024-05-31] MEDS ORDERED: Furosemide 10 MG / ML 2ML Vial IV ONE (11:35)
[2024-05-31] MEDS ORDERED: Albumin Human 50 ML IV ONE (11:40)
--- NOTE | 2024-05-31 18:27 | NUR ---
SHIFT SUMMARY PATIENT ALERT AND ORIENTED TO PERSON, PLACE AND OCCASINALLY SITUATION BUT NOT TIME. PT OFF PRECEDEX MOST OF THE DAY, RESTARTED APPROX 1830 PT SYMPYOMS WORSENED. FLUSHING, TACHYCARDIA,TACHYPNEA, HTN WORSENED AND ANXIETY. UNABLE TO TOLERATE HIGH FLOW NASAL FOR LONGER THAN 30-45MIN TODAY. DR BRANCH NOTIFIED. LUNGS: INTERMITTENT WHEEZING AND COARSE POSTERIOR BASES. PT REFUSED DEEP BREATHING AND COUGHING AFTER 1500 WELL PEP VALVE AND IS DUE TO ABOVE S/SX. PRN ATIVAN ADMINISTERED PRIOR TO RESTARTING THE PRECEDEX. CARDIAC: V PACED SBP 130-150S HR 80S MOST OF THE DAY UNTIL LATER THIS AFTERNOON 100-110S. ABDOMEN IS SOFT/NON TENDER WITH NORMOACTIVE BOWEL TONES. MOVES ALL EXTERMITIES BUT WEAKNESS PRESENT. IN TODAY TO VISIT FOR MOST OF THE DAY. POTASSIUM REPLACED THIS MORNING, LABS REDRAWN PRIOR TO SHIFT CHANGE.
[2024-05-31 19:19] LABS: Bun/Creatinine Ratio 51.9 (12.0-20.0); Calcium, Blood 8.9 mg/dL (8.5-10.1); Creatinine, Blood 0.75 mg/dL (0.40-1.00); Potassium, Blood 3.3 mmol/L (3.5-5.5)
[2024-06-01] VITALS (49 sets, daily range): BP systolic 105–172; BP diastolic 56–112
[2024-06-01 04:13] LABS: BASOPHILS ABSOLUTE AUTO 0.03 K/mm3 (0.00-0.23); BASOPHILS PERCENT AUTO 0 % (0-2); EOSINOPHILS ABSOLUTE AUTO 0.02 K/mm3 (0.00-0.68); EOSINOPHILS PERCENT AUTO 0 % (0-6); Hematocrit 37.2 % (33.0-51.0); Hemoglobin 11.6 g/dL (11.5-16.0); IMMATURE GRAN PERCENT AUTO 1 % (0-1); LYMPHOCYTES PERCENT AUTO 4 % (21-46); MONOCYTES ABSOLUTE AUTO 0.61 K/mm3 (0.16-1.47); MONOCYTES PERCENT AUTO 4 % (4-13); Mean Corpuscular HGB Conc 31.2 g/dL (31.5-36.5); Mean Corpuscular Volume 87 fL (80-100); Mean Platelet Volume 10.5 fL (9.1-12.4); NEUTROPHILS ABSOLUTE AUTO 13.65 K/mm3 (1.96-9.15); NEUTROPHILS PERCENT AUTO 90 % (41-73); Platelet Count 196 K/mm3 (150-400); RDW Coefficient Variation 16.9 % (11.7-14.2); RDW Standard Deviation 53.1 fL (35.1-46.3); White Blood Cell Count 15.11 K/mm3 (4.00-11.30)
[2024-06-01 04:48] LABS: Albumin, Blood 1.5 g/dL (3.4-5.0); Albumin/Globulin Ratio 0.4 (0.8-1.8); Bilirubin, Total 0.6 mg/dL (0.1-1.0); Bun/Creatinine Ratio 54.7 (12.0-20.0); Calcium, Blood 8.2 mg/dL (8.5-10.1); Creatinine, Blood 0.64 mg/dL (0.40-1.00); Globulin, Blood 3.9 g/dL (2.2-4.0); Phosphorus, Blood 2.2 mg/dL (2.5-4.9); Potassium, Blood 3.9 mmol/L (3.5-5.5); Total Protein, Blood 5.4 g/dL (6.4-8.2)
--- NOTE | 2024-06-01 05:02 | NUR ---
SHIFT SUMMARY PT A/OX2, ANSWERS YES/NO QUESTIONS APPROPRIATLY. ON PRECEDEX 0.8MCG/KG/H R/T INCREASED ANXIETY AND AGITATION. SHE WAS TAKING HER BIPAP MASK OFF AND HOLLERING OUT. PT IS NOW CALM AND RESTING IN BED, TOLERATING BIPAP. BP STABLE T/O SHIFT. STILL NPO R/T TOO HIGH OF O2 DEMANDS FOR SWALLOW EVAL. NAVARRO DRAINING TO GRAVITY, GOOD UOP NOTED. PT HAD A PRETTY UNEVENTFUL SHIFT. CONTINUE W/ PLAN OF CARE. CALL LIGHT IN REACH.
[2024-06-01] MEDS ORDERED: Azithromycin 500 MG in NS 250 ML IV SCH (09:00)
[2024-06-01] MEDS ORDERED: Albumin Human 50 ML IV ONE (09:10)
[2024-06-01] MEDS ORDERED: Furosemide 10 MG/ML 4ML Vial IV ONE (10:00)
[2024-06-01] MEDS ORDERED: Acetylcysteine 200 MG/ML 4ML Vial INH SCH (10:00)
[2024-06-01] MEDS ORDERED: Albuterol 2.5 MG/3 ML VIAL INH PRN (10:00)
[2024-06-01] MEDS ORDERED: TPN Consult Notification XX ONE (11:10)
[2024-06-01 12:21] LABS: Base Excess Venous 15.8 mmol/L; Bicarbonate Venous 37.1 mmol/L (24.0-30.0); PCO2 Venous 56.5 mmHg (38-42); pH Blood Venous 7.46 (7.34-7.37)
[2024-06-01] MEDS ORDERED: Parenteral Electolytes 40 ML,POTASSIUM PHOS,M-BASIC-D-BASIC 30 MMOL,Multivitamins 10 ML... IV SCH (17:00)
--- NOTE | 2024-06-01 17:43 | NUR ---
SHIFT SUMMARY NO ACUTE CHANGES THIS SHIFT. PT HAS REMAINED AWAKE AND ALERT THIS SHIFT. PT IS ABLE TO ANSWER MOST QUESTIONS APPROPRIATELY IN SINGLE WORD SENTENCES. PT WITH EPISODES OF CONFUSION AND YELLING OUT. PT DENIES PAIN OR DISCOMFORT. PT ALTERNATED BETWEEN BIPAP AND AIRVO THROUGHOUT THE SHIFT PER RT. PT ON AIRVO CURRENTLY. PT UNABLE TO TAKE PO INTAKE DUE TO RESPIRATORY STATUS THIS SHIFT. VITAL SIGNS STABLE. POWERGLIDE AND PIV'S IN PLACE. PRECEDEX INFUSING AT 0.2 MCG/KG/HR. NAVARRO REMAINS IN PLACE WITH LARGE VOLUME OF CLEAR YELLOW URINE OUTPUT NOTED. PT SPOUSE AT BEDSIDE FOR SHORT TIME THIS AFTERNOON. WILL CONTINUE TO MONITOR AND REPORT OFF TO ONCOMING RN.
[2024-06-02] VITALS (14 sets, daily range): BP systolic 118–175; BP diastolic 54–95
[2024-06-02 04:15] LABS: Magnesium, Blood 2.1 mg/dL (1.6-2.4)
[2024-06-02 04:16] LABS: Alanine Aminotransfer (ALT/SGP 32 U/L (12-78); Albumin, Blood 1.8 g/dL (3.4-5.0); Albumin/Globulin Ratio 0.4 (0.8-1.8); Alk Phos 108 U/L (50-136); Anion Gap 6 mmol/L (3-11); Aspartate Aminotrans (AST/SGOT 24 U/L (12-37); Bilirubin, Total 0.7 mg/dL (0.1-1.0); Blood Urea Nitrogen 28 mg/dL (8-24); Bun/Creatinine Ratio 47.5 (12.0-20.0); CO2, Blood 38 mmol/L (21-32); Calcium, Blood 8.6 mg/dL (8.5-10.1); Chloride, Blood 112 mmol/L (98-108); Creatinine, Blood 0.59 mg/dL (0.40-1.00); Globulin, Blood 4.2 g/dL (2.2-4.0); Glomerular Filtration Rate 92 (60-); Glucose, Blood 131 mg/dL (70-99); Phosphorus, Blood 2.6 mg/dL (2.5-4.9); Potassium, Blood 3.6 mmol/L (3.5-5.5); Sodium, Blood 152 mmol/L (136-145); Triglycerides 86 mg/dL (30-160)
--- NOTE | 2024-06-02 05:57 | NUR ---
SHIFT SUMMARY: PT WAS ABLE TO GO THROUGH THE NIGHT ON AIRVO ONLY. SHE IS ALERT AND ORIENTED WHEN ASKING HER QUESTIONS, HOWEVER SHE DOES GET DISORIENTED WHEN NO ONE IS IN THE ROOM WITH HER. SHE CONTINUES TO CALL OUT FREQUENTLY. SHE HAS EXPRESSED SEVERAL TIMES THAT SHE WANTS TO GO HOME TO BE WITH HER AND PASS. I TOLD HER WE'D DISCUSS WITH THE DAYSHIFT NURSE AND DOCTOR TODAY. SHE HAD NO OTHER SIGNIFICANT EVENTS OVERNIGHT. SHE REMAINED ON PRECEDEX GTT FOR ANXIETY. HER BLOOD PRESSURE IS ELEVATED THE LAST FEW HOURS OF THE SHIFT. SHE REMAINS PACED. SPO2 ABOVE 92% BUT SHE DESATS QUICKLY IF SHE PULLS OFF HER OXYGEN.
[2024-06-02] MEDS ORDERED: TPN Consult Notification XX ONE (11:05)
[2024-06-02] MEDS ORDERED: LORazepam 2 MG/ML 1ML Injection IV PRN (15:05)
[2024-06-02] MEDS ORDERED: Morphine Sulfate 10 MG/ML 1MLSYR IV PRN (15:05)
[2024-06-02] MEDS ORDERED: Morphine Sulfate 20 MG/1ML 1 ML Oral Syringe SL PRN (15:05)
--- NOTE | 2024-06-02 15:05 | NUR ---
TRANSITION TO COMFORT CARE PT SPOUSE ROBERT AT BEDSIDE. UPDATED TO CURRENT PT CONDITION AND CONTINUED INCREASE IN RESPIRATORY REQUIREMENTS. PALLIATIVE CARE RN HAD LENGHTY DISCUSSION WITH SPOUSE AND PT ABOUT GOALS OF CARE AND INCREASING RESPIRATORY REQUIREMENTS. PLANS FOR PT TO BE READ LAST RIGHTS AND THEN PROCEED WITH COMFORT CARE THIS AFTERNOON.
--- NOTE | 2024-06-02 16:30 | NUR ---
INITIAL PALLIATIVE CARE VISIT: MET WITH PT AND SPOUSE ROBERT IN PT ROOM. PT IS AWAKE, SHE IS ABLE TO TALK AND ANSWER QUESTIONS DESPITE WEARING HER BIPAP MASK. PT IS ABLE TO MAKE HER NEEDS AND WANTS KNOWN. OPENED UP DISCUSSION ABOUT HOW PT FEELS SHE IS DOING. SPOUSE STATED "MY TOLD ME SHE FEELS LIKE SHE IS DYING." AGREED WITH HER HUSBANDS STATEMENT. DISCUSSED GOALS OF CARE WITH PATIENT. SHE STATED SHE WANTS HER LAST RITES READ. PT STATES SHE DOES NOT WANT TO WEAR THE BIPAP ANY LONGER. DISCUSS COMFORT CARE MEASURES AND WHAT TO EXPECT ON COMFORT MEASURES WITH ROBERT AND GIANNA. DARIO AGREES COMFORT MEASURES IS WHAT SHE WANTS AFTER HER LAST RITES ARE GIVEN. SPOUSE ROBERT STATES HIS PROBATE CLERK KEYON HAS BEEN IN CONTACT WITH HIM AND HE ROBERT WILL CALL TO FIND OUT WHEN HE CAN COME AND GIVE LAST RITES. UPDATED VENTURA WRIGHT AND DR. MARCANO. BOTH AGREE COMFORT MEASURES ARE APPROPRIATE. KYLE WILL CALL WHEN LAST RITES ARE READ IF THEY NEED ANY FURTHER ASSISTANCE.
[2024-06-02] MEDS ORDERED: Parenteral Electolytes 40 ML,Potassium Phosphate Dibasic 30 MM,Multivitamins 10 ML,ZINC... IV SCH (17:00)
--- NOTE | 2024-06-02 17:32 | NUR ---
SHIFT SUMMARY PT HAS TRANSITIONED TO COMFORT CARE AT 1540. PT TAKEN OFF BIPAP AND IV GTT'S AT THIS TIME. PT WITH SIGNIFICANT AIR HUNGER INITIALLY. PT MED WITH MORPHINE AND ATIVAN PER EMAR. PT SPOUSE HAS REMAINED AT BEDSIDE THIS AFTERNOON. PG AND IV'S SALINE LOCKED. NAVARRO REMAINS IN PLACE WITH YELLOW URINE OUTPUT NOTED. PT ABLE TO SPEAK AND MAKE NEEDS KNOWN. PT APPEARS COMFORTABLE AT THIS TIME. WILL CONTINUE TO MONITOR AND REPORT OFF TO ONCOMING RN.
== END 2024-06-02 19:06 | DRG 871 ==
LOC: ER 11:07 → PCU 13:36 → ICUE 13:36 → PCU 15:27 → ICUE 15:28
PROVIDERS: Family Medicine; Hospitalist; Internal Medicine; Internal Medicine Critical Care Medicine; Student in an Organized Health Care Education/Training Program; ADMIT Internal Medicine
PROC: 5A09457 Assistance with Respiratory Ventilation, 24-96 Consecutive Hours, Continuous Positive Airway Pressure (ICD-10-PCS; principal; 2024-05-27)
PROC: 0T9B70Z Drainage of Bladder with Drainage Device, Via Natural or Artificial Opening (ICD-10-PCS; 2024-05-27)
PROC: 3E033XZ Introduction of Vasopressor into Peripheral Vein, Percutaneous Approach (ICD-10-PCS; 2024-05-27)
PROC: 5A0935A Assistance with Respiratory Ventilation, Less than 24 Consecutive Hours, High Flow/Velocity Cannula (ICD-10-PCS; 2024-05-31)
PROC: 30233J1 Transfusion of Nonautologous Serum Albumin into Peripheral Vein, Percutaneous Approach (ICD-10-PCS; 2024-05-31)
PROC: 3E03329 Introduction of Other Anti-infective into Peripheral Vein, Percutaneous Approach (ICD-10-PCS; 2024-06-01)
DX: A41.89 Other specified sepsis (principal); G92.8 Other toxic encephalopathy; G93.41 Metabolic encephalopathy; J10.00 Influenza due to other identified influenza virus with unspecified type of pneumonia; J96.21 Acute and chronic respiratory failure with hypoxia; R65.21 Severe sepsis with septic shock; J96.22 Acute and chronic respiratory failure with hypercapnia; I50.43 Acute on chronic combined systolic (congestive) and diastolic (congestive) heart failure; J44.1 Chronic obstructive pulmonary disease with (acute) exacerbation; E87.1 Hypo-osmolality and hyponatremia; N17.9 Acute kidney failure, unspecified; I13.0 Hypertensive heart and chronic kidney disease with heart failure and stage 1 through stage 4 chronic kidney disease, or unspecified chronic kidney disease; J44.0 Chronic obstructive pulmonary disease with (acute) lower respiratory infection; J98.11 Atelectasis; E87.0 Hyperosmolality and hypernatremia; I48.20 Chronic atrial fibrillation, unspecified; Z66 Do not resuscitate; Z51.5 Encounter for palliative care; M54.9 Dorsalgia, unspecified; G89.29 Other chronic pain; G47.33 Obstructive sleep apnea (adult) (pediatric); I35.0 Nonrheumatic aortic (valve) stenosis; M51.369 Other intervertebral disc degeneration, lumbar region without mention of lumbar back pain or lower extremity pain; H54.8 Legal blindness, as defined in USA; N18.9 Chronic kidney disease, unspecified; I49.5 Sick sinus syndrome; R73.03 Prediabetes; Z96.643 Presence of artificial hip joint, bilateral; R45.1 Restlessness and agitation; R63.1 Polydipsia; E87.6 Hypokalemia; F41.9 Anxiety disorder, unspecified; R40.0 Somnolence; E88.09 Other disorders of plasma-protein metabolism, not elsewhere classified; E66.01 Morbid (severe) obesity due to excess calories; Z90.710 Acquired absence of both cervix and uterus; Z98.890 Other specified postprocedural states; Z87.891 Personal history of nicotine dependence; Z79.899 Other long term (current) drug therapy; Z85.118 Personal history of other malignant neoplasm of bronchus and lung; Z79.51 Long term (current) use of inhaled steroids; Z79.01 Long term (current) use of anticoagulants; Z79.811 Long term (current) use of aromatase inhibitors; Z79.82 Long term (current) use of aspirin; Z95.0 Presence of cardiac pacemaker; Z85.71 Personal history of Hodgkin lymphoma; Z92.21 Personal history of antineoplastic chemotherapy; Z82.49 Family history of ischemic heart disease and other diseases of the circulatory system; Z83.6 Family history of other diseases of the respiratory system; Z95.2 Presence of prosthetic heart valve; Z85.821 Personal history of Merkel cell carcinoma; Z88.5 Allergy status to narcotic agent; Z68.38 Body mass index [BMI] 38.0-38.9, adult; Z28.21 Immunization not carried out because of patient refusal
CPT/HCPCS: 0202U; 36415; 36600; 51702; 71045; 71250; 80048; 80053; 80202; 82570; 82803; 82947; 83605; 83735; 83880; 83935; 84100; 84145; 84295; 84300; 84478; 84484; 85025; 87040; 87449; 93005; 93010; 93306; 94640; 94660; 94664; 94667; 94760; 94762; 99285-25; C1751; J0456; J0692; J0696; J1100; J1644; J1650; J1720; J1940; J2060; J2270; J2543; J2919; J3370; J3480; J7030; J7040; J7050; P9047